=== PATIENT | female | born 1995 | race Caucasian/White ===

== ENCOUNTER 2016-10-09 02:12 | Emergency (ER) | payer OTHER ==
[~2016-10-09] VITALS: Ht 157.5 cm; Wt 66.9 kg
[~2016-10-09 02:12] MED LIST: BIOT1TAB5 PO; CITA20TA9 PO; IBUP-1428 PO; MEDR150I INJ; ONDA4TAB10 SL; OXYC1TAB3 PO; TRAM-10 PO
[2016-10-09 02:18] VITALS: TEMP 36.9; Ht 157.5 cm; Wt 66.9 kg
[2016-10-09] MEDS ORDERED: ACETAMINOPHEN 500 MG TAB PO STA (02:27)
[2016-10-09] MEDS ORDERED: IBUPROFEN 600 MG TAB PO STA (02:27)
[2016-10-09 03:55] VITALS: BP 116/67; PULSE 75; O2SAT 98
[2016-10-09] MEDS ORDERED: NORCO 5/325MG HOME PACK PO ONE (04:15)
[2016-10-09] MEDS ORDERED: MEDR150I INJ (04:24)
--- NOTE | 2016-10-09 09:00 | DIAGNOSTIC IMAGING REPORT ---
LEFT SHOULDER MIN 2 VIEWS ROUTINE CLINICAL HISTORY: Left shoulder injury COMPARISON: None FINDINGS: This exam is compromised by suboptimal positioning. Alignment of the acromioclavicular and glenohumeral joints appears anatomic and no acute fracture is identified. IMPRESSION: 1. Study compromised by difficulty with positioning. 2. No acute fracture or dislocation of the left shoulder identified. If persistent pain, repeat left shoulder radiographs could be obtained. Electronically signed by: Vel Palomares M.D. 10/09/2016 8:58 AM Dictated Date/Time: 10/09/2016 8:57 AM
--- NOTE | 2016-10-09 23:03 | EMERGENCY ROOM VISIT NOTE ---
ED Visit Note First contact with patient: 02:23 CHIEF COMPLAINT: Shoulder pain HISTORY OF PRESENT ILLNESS: This 20 year old female patient presents to the emergency department complaining of pain in the left shoulder about 30 minutes ago. The patient states that she was sitting on the ground, when she reached up to try to lift herself off the ground. She states that she had immediate pain and discomfort. There is limitation of motion of the arm because of the pain. The pain is moderate, constant and increases with motion of the hand and arm. The patient states the pain is dull and 6/10. The patient has taken nothing for relief of the pain. No previous significant previous shoulder disease or injury. No numbness or tingling. No neck and no back pain. No chest pain or shortness of breath. No abdominal pain or nausea/vomiting. No cough. REVIEW OF SYSTEMS: A 6 system review of systems was performed with positives and pertinent negatives in the HPI. ALLERGIES: Morphine, prednisone, sulfa MEDICATIONS: No chronic medications PMH: No chronic medical disease SOCIAL HISTORY: Employed and lives locally PHYSICAL EXAM: Vital Signs: Reviewed nurse's notes, vital signs stable. GENERAL : White female, in no acute distress, but appears to be in pain, well-developed , well-nourished. MUSCULOSKELETAL: There is no deformity in the contour of the left shoulder and there are no dagoberto deformities noted. There is no sulcus sign. There is tenderness over the supraspinatus distribution. The patient's range of motion is limited secondary to tenderness. Supraspinatus strength 0/ 5. There is no clavicle tenderness. No tenderness of the humerus, elbow, wrist , or hand. Spectral Scientist strength 5/5. Radial pulse 2+. NECK: No tenderness to palpation over the cervical spine. HEART: Regular rate and rhythm without murmurs gallops or rubs. LUNGS: Clear to auscultation bilaterally without wheezes, rales or rhonchi. No accessory muscle use. No retractions. NEURO: The patient is alert and oriented to person, place, and time. Normal sensation to light and sharp touch. Capillary refill less than 2 seconds. LEFT SHOULDER MIN 2 VIEWS ROUTINE CLINICAL HISTORY: Left shoulder injury COMPARISON: None FINDINGS: This exam is compromised by suboptimal positioning. Alignment of the acromioclavicular and glenohumeral joints appears anatomic and no acute fracture is identified. IMPRESSION: 1. Study compromised by difficulty with positioning. 2. No acute fracture or dislocation of the left shoulder identified. If persistent pain, repeat left shoulder radiographs could be obtained. EMERGENCY DEPARTMENT COURSE: I examined the patient. She appears to have tenderness of the left shoulder over the superior scapula. X-ray was obtained and does not show acute fracture or dislocation. The patient will be placed in an arm sling and given a short course of pain medication. She is to follow with orthopedics care management. She was otherwise invited the ER with any new , worsening, or concerning symptoms. Problem List Medical Problems: (1) Anxiety Disorder, Unspecified Status: Chronic (2) Chest wall pain Status: Resolved (3) Endometriosis Status: Chronic (4) Occipital neuralgia Status: Resolved (5) Ovarian cyst Status: Chronic Surgical Problems: (1) History of laparoscopic cholecystectomy Status: Resolved (2) S/P laparoscopic surgery Permanent Comment: for endometriosis Status: Resolved Current/Historical Medications Scheduled Biotin (Biotin), 1,000 MCG PO DAILY Citalopram Hydrobromide (Celexa), 40 MG PO DAILY Medroxyprogesterone Acetate (C (Depo-Provera Contraceptiv), 1 DOSE INJ Q 12 WEEKS Scheduled PRN Ibuprofen (Motrin), 800 MG PO Q8H PRN for Pain Tramadol (Ultram), 50 MG PO Q6 PRN for Pain Allergies Coded Allergies: Morphine (Unverified Allergy, Severe, vomiting, 10/09/16) Prednisone (Verified Allergy, Intermediate, hives, 10/09/16) Sulfa Drugs (Verified Allergy, Unknown, RASH, 10/09/16) Vital Signs Date Time Temp Pulse Resp B/P Pulse Ox O2 Delivery O2 Flow Rate FiO2 10/09/16 03:55 75 16 116/67 98 Room Air 10/09/16 02:18 36.9 83 18 127/85 98 Room Air Medications Administered Medications (Trade) Dose Ordered Sig/Praveen Route Start Time Stop Time Status Last Admin Dose Admin Acetaminophen (Tylenol Tab) 1,000 mg NOW STAT PO 10/09/16 02:27 10/09/16 02:28 DC 10/09/16 02:27 1,000 MG Acetaminophen/ Hydrocodone Bitart ([place] 5/325mg Home Pack) 1 homepack UD ONCE PO 10/09/16 04:15 2/12/17 04:16 DC 10/09/16 04:15 1 HOMEPACK Departure Information Impression Primary Impression: Injury of left shoulder Dispostion Home / Self-Care Condition GOOD Forms HOME CARE DOCUMENTATION FORM, Work Instructions, Additional Instructions: Patient was seen and evaluated today in the emergency department fo medical care. May not return to work until cleared by orthopedics. IMPORTANT VISIT INFORMATION Patient Instructions My [facility] Additional Instructions You were seen and evaluated today on an emergency basis only. This is not a substitute for, or an effort to provide, complete comprehensive medical care. It is not possible to recognize and treat all injuries or illnesses in a single emergency department visit. 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 For baseline pain relief you may alternate ibuprofen and acetaminophen every 4 hours for pain control. Take 600 mg ibuprofen (Advil) and then 4 hours later take 1000 mg acetaminophen (Tylenol). Do not take more than 3000 mg acetaminophen in a single day. [place] (hydrocodone/acetaminophen) 5/325 mg (homepack) every 6 hours as needed for worsening breakthrough pain. Do not drink or drive on [place]. This medication will likely make you tired. Do not take [place] and Tylenol at the same time as both contain acetaminophen. [place] may cause constipation. You may wish to take an [id number] stool softener like Colace if this occurs. You are welcome to return to the emergency department anytime with new, worsening, or concerning symptoms. Work Instructions Additional Work Instructions: Patient was seen and evaluated today in the emergency department for medical care. May not return to work until cleared by orthopedics.
== END 2016-10-09 04:18 | disposition home or self-care (01) ==
LOC: C.EDB 02:13
DX: S49.92XA Unspecified injury of left shoulder and upper arm, initial encounter (principal); X50.9XXA Other and unspecified overexertion or strenuous movements or postures, initial encounter; Y99.0 Civilian activity done for income or pay; F41.9 Anxiety disorder, unspecified

== ENCOUNTER 2016-10-29 18:32 | Emergency (ER) | payer OTHER ==
[~2016-10-29] VITALS: Ht 160 cm; Wt 69.4 kg
[~2016-10-29 18:32] MED LIST changes: -ONDA4TAB10 SL; -OXYC1TAB3 PO
[2016-10-29 18:38] VITALS: TEMP 36.7; Ht 160 cm; Wt 69.4 kg
--- NOTE | 2016-10-29 19:20 | DIAGNOSTIC IMAGING REPORT ---
SINGLE VIEW CHEST CLINICAL HISTORY: Dyspnea. Atypical chest pain. Chest congestion. FINDINGS: An AP, portable, upright chest radiograph is compared to study dated 05/08/2016. The cardiomediastinal silhouette is unremarkable. The lungs and pleural spaces are clear. No pneumothorax is seen. The bony thorax is grossly intact. IMPRESSION: No active disease in the chest. Electronically signed by: Wood Briggs M.D. 10/29/2016 7:18 PM Dictated Date/Time: 10/29/2016 7:18 PM
[2016-10-29] MEDS ORDERED: MELO7.5T5 PO (19:23)
[2016-10-29] MEDS ORDERED: MULT-1027 PO (19:24)
[2016-10-29 19:29] LABS: BASO % 0.2 %; BASO ABS # 0.02 K/uL (0-0.2); COMPLETE YES; EOS % 0.4 %; HEMATOCRIT 40.8 % (37-47); IG% 0.2 %; LYMPH % 34.1 %; LYMPH ABS # 3.42 K/uL (1.2-3.4); MEAN CELL VOLUME 88.7 fL (80-100); MEAN CORPUSCULAR HEMOGLOBIN 31.3 pg (25-34); MEAN CORPUSCULAR HGB CONC 35.3 g/dl (32-36); MEAN PLATELET VOLUME 10.3 fL (7.4-10.4); MONO % 8.4 %; NEUT % 56.7 %; PLATELET COUNT 271 K/uL (130-400); WHITE BLOOD COUNT 10.03 K/uL (4.8-10.8)
[2016-10-29 19:47] LABS: ALT/SGPT 28 U/L (12-78); BLOOD UREA NITROGEN 12 mg/dl (7-18); BUN/CREATININE RATIO 14.4 (10-20); CALCIUM 9.2 mg/dl (8.5-10.1); CARBON DIOXIDE 23 mmol/L (21-32); CHLORIDE 109 mmol/L (98-107); CREATININE 0.85 mg/dl (0.60-1.20); GLUCOSE 82 mg/dl (70-99); POTASSIUM 3.7 mmol/L (3.5-5.1); SODIUM 142 mmol/L (136-145)
[2016-10-29 19:58] LABS: ALKALINE PHOSPHATASE 72 U/L (45-117); AST/SGOT 19 U/L (15-37)
[2016-10-29 22:04] VITALS: BP 115/73; PULSE 72; O2SAT 99
--- NOTE | 2016-10-29 22:09 | EMERGENCY ROOM VISIT NOTE ---
History Report prepared by Stella: Winsome Bush Under the Supervision of: Dr. Nguyễn Gautam D.O. First contact with patient: 18:43 Chief Complaint: RESPIRATORY PROBLEMS Stated Complaint: CHEST PAIN,SOB,FLUID BUILD UP History of Present Illness The patient is a 20 year old female who presents to the Emergency Room with complaints of constant shortness of breath beginning 5:30pm. The patient states that she feels like she cannot take a deep breath. She notes that she has a history of anxiety and is on Celexa but this does not feel like her usual anxiety. She complains of chest pain that she describes as sharp and throbbing beginning 1 week ago, sleeping for 12+ hours a day, hot and cold flashes, finger swelling, and heart palpitations. The patient denies any arm pain, jaw pain, cough, calf swelling, recent trips, coughing up blood, previous blood clots, fever, drug use, no history of sudden below 30 years old in her family. She also denies any history of diabetes, hypertension, hyperlipidemia and current smoking. She notes that when she has an episode her fingers tingle and she gets these episodes of chest pain and finger tingling for about 10 minutes a few times a day. She states that activity worsens her symptoms and resting improves them. The patient states that she has lost about 20 pounds in the last month. Source of History: patient Onset: 1 hour ago Position: other (global) Quality: other (SOB) Timing: constant Modifying Factors (Worsening): exertion Modifying Factors (Relieving): rest Associated Symptoms: + chest pain, No fevers Note: She complains of chest pain that she describes as sharp and throbbing beginning 1 week ago, sleeping for 12+ hours a day, hot and cold flashes, finger swelling , and heart palpitations. The patient denies any arm pain, jaw pain, cough, calf swelling, recent trips, coughing up blood, previous blood clots, drug use, no history of sudden below 30 years old in her family. Review of Systems See HPI for pertinent positives & negatives. A total of 10 systems reviewed and were otherwise negative. Past Medical & Surgical Medical Problems: (1) Anxiety Disorder, Unspecified (2) Chest wall pain (3) Endometriosis (4) Occipital neuralgia (5) Ovarian cyst Surgical Problems: (1) History of laparoscopic cholecystectomy (2) S/P laparoscopic surgery Family History No pertinent family history Social History Smoking Status: Former Smoker Drug Use: none Occupation Status: student Current/Historical Medications Scheduled Biotin (Biotin), 10 MG PO DAILY Citalopram Hydrobromide (Celexa), 40 MG PO DAILY Medroxyprogesterone Acetate (C (Depo-Provera Contraceptiv), 1 DOSE INJ Q 12 WEEKS Meloxicam (Mobic), Unknown Dose PO DAILY Multiple Vitamin (Multi Vitamin), 1 TAB PO DAILY Scheduled PRN Ibuprofen (Motrin), 800 MG PO Q8H PRN for Pain Allergies Coded Allergies: Morphine (Unverified Allergy, Severe, vomiting, 10/29/16) Prednisone (Verified Allergy, Intermediate, hives, 10/29/16) Sulfa Drugs (Verified Allergy, Unknown, RASH, 10/29/16) Physical Exam Vital Signs Date Time Temp Pulse Resp B/P Pulse Ox O2 Delivery O2 Flow Rate FiO2 10/29/16 22:04 72 16 115/73 99 10/29/16 18:38 36.7 79 18 119/75 100 Room Air Physical Exam GENERAL: sitting up in bed, anxious, no distress, non-toxic EYE EXAM: normal conjunctiva OROPHARYNX: no exudate, no erythema, lips, buccal mucosa, and tongue normal and mucous membranes are moist NECK: supple, no nuchal rigidity, no adenopathy, non-tender LUNGS: Clear to auscultation. Normal chest wall mechanics HEART: no murmurs, S1 normal and S2 normal CHEST: Anterior sternal reproducible tenderness. ABDOMEN: abdomen soft, non-tender, normo-active bowel sounds, no masses, no rebound or guarding. BACK: Back is symmetrical on inspection and there is no deformity, no midline tenderness, no CVA tenderness. SKIN: no rashes and no bruising UPPER EXTREMITIES: upper extremities are grossly normal. LOWER EXTREMITIES: No pitting edema. Calves are equal bilaterally. Pulses equal bilaterally. NEURO EXAM: Normal sensorium, cranial nerves II-XII grossly intact, normal speech, no gross weakness of arms, no gross weakness of legs. Medical Decision & Procedures ER Provider Diagnostic Interpretation: Xray results per the radiologist and my interpretation. SINGLE VIEW CHEST FINDINGS: An AP, portable, upright chest radiograph is compared to study dated 05/08/2016. The cardiomediastinal silhouette is unremarkable. The lungs and pleural spaces are clear. No pneumothorax is seen. The bony thorax is grossly intact. IMPRESSION: No active disease in the chest. Electronically signed by: Wood Briggs M.D. 10/29/2016 7:18 PM Dictated Date/Time: 10/29/2016 7:18 PM Laboratory Results 10/29/16 19:20 Red Blood Count 4.60, Mean Corpuscular Volume 88.7, Mean Corpuscular Hemoglobin 31.3, Mean Corpuscular Hemoglobin Concent 35.3, Mean Platelet Volume 10.3, Neutrophils (%) (Auto) 56.7, Lymphocytes (%) (Auto) 34.1, Monocytes (%) (Auto) 8.4, Eosinophils (%) (Auto) 0.4, Basophils (%) (Auto) 0.2, Neutrophils # (Auto) 5.69, Lymphocytes # (Auto) 3.42, Monocytes # (Auto) 0.84, Eosinophils # (Auto) 0.04, Basophils # (Auto) 0.02 10/29/16 19:20 Test 10/29/16 19:20 White Blood Count 10.03 K/uL (4.8-10.8) Red Blood Count 4.60 M/uL (4.2-5.4) Hemoglobin 14.4 g/dL (12.0-16.0) Hematocrit 40.8 % (37-47) Mean Corpuscular Volume 88.7 fL (80-100) Mean Corpuscular Hemoglobin 31.3 pg (25-34) Mean Corpuscular Hemoglobin Concent 35.3 g/dl (32-36) Platelet Count 271 K/uL (130-400) Mean Platelet Volume 10.3 fL (7.4-10.4) Neutrophils (%) (Auto) 56.7 % Lymphocytes (%) (Auto) 34.1 % Monocytes (%) (Auto) 8.4 % Eosinophils (%) (Auto) 0.4 % Basophils (%) (Auto) 0.2 % Neutrophils # (Auto) 5.69 K/uL (1.4-6.5) Lymphocytes # (Auto) 3.42 K/uL (1.2-3.4) Monocytes # (Auto) 0.84 K/uL (0.11-0.59) Eosinophils # (Auto) 0.04 K/uL (0-0.5) Basophils # (Auto) 0.02 K/uL (0-0.2) RDW Standard Deviation 39.0 fL (36.4-46.3) RDW Coefficient of Variation 12.2 % (11.5-14.5) Immature Granulocyte % (Auto) 0.2 % Immature Granulocyte # (Auto) 0.02 K/uL (0.00-0.02) D-Dimer < 190 ug/L FEU (0-500) Anion Gap 10.0 mmol/L (3-11) Est Creatinine Clear Calc Drug Dose 98.6 ml/min Estimated GFR () 114.3 Estimated GFR (Non- 98.6 BUN/Creatinine Ratio 14.4 (10-20) Calcium Level 9.2 mg/dl (8.5-10.1) Total Bilirubin 0.4 mg/dl (0.2-1) Direct Bilirubin 0.1 mg/dl (0-0.2) Aspartate Amino Transf (AST/SGOT) 19 U/L (15-37) Alanine Aminotransferase (ALT/SGPT) 28 U/L (12-78) Alkaline Phosphatase 72 U/L (45-117) Troponin I < 0.015 ng/ml (0-0.045) Pro-B-Type Natriuretic Peptide 44 pg/ml (0-450) Total Protein 7.1 gm/dl (6.4-8.2) Albumin 4.1 gm/dl (3.4-5.0) Thyroid Stimulating Hormone (TSH) 1.460 uIu/ml (0.300-4.500) ECG Indication: chest pain Rate (beats per minute): 76 Rhythm: sinus rhythm Findings: no ectopy, other (normal axis) ED Course ED COURSE: Vital signs were reviewed and normal The patients medical record was reviewed The above diagnostic studies were performed and reviewed. ED treatments and interventions as stated above. 1855: The patient was evaluated in room C7. A complete history and physical examination was performed. The patient was 66 kilos on 10/09 and is now 69 kilos. 2147: I reevaluated the patient. She is doing well. 2200: Upon reevaluation, the patient is hemodynamically stable.I discussed my findings with the patient and she understands and agrees with the treatment plan. Based on the patients age, coexisting illnesses, exam and lab findings the decision to treat as an outpatient was made. The patient remained stable while under my care. The patient appeared well at the time of discharge. Medical Decision Differential diagnoses includes but is not limited to pneumonia, bronchitis, COPD/Asthma exacerbation, pneumothorax, pulmonary embolism, congestive heart failure, acute coronary syndrome Patient is a 20-year-old female who presents the ER for chest pain which has been present intermittently for the past week. She also complains of shortness of breath which started around 5:30 PM tonight. Along with this she did feel her heart racing and felt paresthesias in her fingertips bilaterally. She denies any cardiac risk factors as well as PE risk factors. Her d-dimer was negative. Troponins were negative 2. Chest x-ray was unremarkable. EKG was completely benign. Patient's symptoms were improved significantly while resting in the ER. Patient was discharged follow-up with her primary care doctor. Discussed with Pt concerning signs and symptoms to watch out for. Pt was instructed to follow up with their PCP and discussed with the patient their option to return to the ED at anytime for persistent or worsening symptoms. The appropriate anticipatory guidance and out-patient management, including indications for return to the emergency department, were explained at length to the patient and understood. Impression Primary Impression: SOB (shortness of breath) Additional Impression: Precordial chest pain Scribe Attestation The scribe's documentation has been prepared under my direction and personally reviewed by me in its entirety. I confirm that the note above accurately reflects all work, treatment, procedures, and medical decision making performed by me. Departure Information Dispostion Home / Self-Care Referrals Jennifer Murray M.D. (PCP) Forms HOME CARE DOCUMENTATION FORM, IMPORTANT VISIT INFORMATION, WORK / SCHOOL INSTRUCTIONS Patient Instructions Chest Pain - [facility], ED Dyspnea Shortness of Breath, My [facility] Additional Instructions Please follow up with your primary care doctor with in the next 24 hours. Any worsening of your symptoms, please return to the ED immediately. This includes worsening chest pain, shortness breath, passing out, or any other concerning signs or symptoms from your standpoint. Again you must follow up with your primary care doctor on Monday morning. Problem Qualifiers
== END 2016-10-29 22:05 | disposition home or self-care (01) ==
LOC: C.EDB 18:33 → C.EDC 22:05
DX: R06.02 Shortness of breath (principal); R07.2 Precordial pain; F41.9 Anxiety disorder, unspecified; Z90.49 Acquired absence of other specified parts of digestive tract; Z87.891 Personal history of nicotine dependence

== ENCOUNTER 2017-06-05 17:54 | Emergency (ER) | payer OTHER ==
[~2017-06-05] VITALS: Ht 157.5 cm; Wt 69.3 kg
[~2017-06-05 17:54] MED LIST changes: -IBUP-1428 PO; +MELO7.5T5 PO; -TRAM-10 PO
[2017-06-05 18:00] VITALS: TEMP 37.1; Ht 157.5 cm; Wt 69.3 kg
[2017-06-05] MEDS ORDERED: ACETAMINOPHEN SUSP 160 MG/5 ML UDC ONE (19:21)
[2017-06-05] MEDS ORDERED: MULT-1027 PO (19:24)
--- NOTE | 2017-06-05 19:26 | EMERGENCY ROOM VISIT NOTE ---
History Report prepared by Stella: Edenilson Mathias Under the Supervision of: Dr. Elías Garcia M.D. First contact with patient: 18:55 Chief Complaint: ABDOMINAL PAIN Stated Complaint: R SIDE PAIN,NAUSEA,CONSTIPATION Nursing Triage Summary: pt ambulated to triage reports started with RLQ pain that radiates across abdomen since sat. became worse about 1 hour ago, reports nausea taking home zofran last dose 1200 nood History of Present Illness The patient is a 21 year old female who presents to the Emergency Room with complaints of generalized abdominal pain that began yesterday. Today, it localized to her RLQ. She rates her pain a 5/10 in severity. Her pain worsens with movement. She is also experiencing chills, nausea, vomiting, and constipation. She denies any diarrhea, back pain, fevers over 100 F. She has a past medical history of a cholecystectomy, migraines, and endometriosis. She denies any burning with urination as well. She is on the Depo shot and states that she does not get any spotting or cramping. She has been taking Zofran to try to relieve her nausea. Source of History: patient Onset: yesterday Position: abdomen (RLQ) Symptom Intensity: 5/10 Quality: sharp Timing: constant Modifying Factors (Worsening): movement Associated Symptoms: + chills, + nausea, + vomiting, No fevers, No back pain , No urinary symptoms Review of Systems See HPI for pertinent positives and negatives. A total of ten systems were reviewed and were otherwise negative. Past Medical & Surgical Medical Problems: (1) Anxiety Disorder, Unspecified (2) Chest wall pain (3) Endometriosis (4) Occipital neuralgia (5) Ovarian cyst Surgical Problems: (1) History of laparoscopic cholecystectomy (2) S/P laparoscopic surgery Family History No pertinent family history Social History Smoking Status: Former Smoker Drug Use: none Marital Status: in relationship Occupation Status: student Current/Historical Medications Scheduled Medroxyprogesterone Acetate (C (Depo-Provera Contraceptiv), 1 DOSE INJ Q 12 WEEKS Multiple Vitamin (Multi Vitamin), 1 TAB PO DAILY Phentermine Hcl (Adipex P), 37.5 MG PO DAILY Thiamine Mononitrate (Vitamin B-1), 400 MG PO DAILY Scheduled PRN Ibuprofen (Motrin), 800 MG PO Q8H PRN for Pain Ondansetron Hcl (Zofran), 4 MG PO UD PRN for Nausea Allergies Coded Allergies: Prednisone (Verified Allergy, Intermediate, hives, 10/29/16) Sulfa Drugs (Verified Allergy, Unknown, RASH, 10/29/16) Morphine (Unverified Adverse Reaction, Severe, vomiting, 06/05/17) Physical Exam Vital Signs Date Time Temp Pulse Resp B/P (MAP) Pulse Ox O2 Delivery O2 Flow Rate FiO2 06/06/17 02:36 105 13 98 06/06/17 02:33 146/85 06/06/17 02:21 104 14 97 06/06/17 02:06 110 15 98 06/06/17 02:01 121/79 06/06/17 01:51 107 21 98 06/06/17 01:36 117 97 06/06/17 01:31 96 12 125/78 06/06/17 01:16 100 13 97 06/06/17 01:01 93 13 118/76 97 06/06/17 00:46 103 13 98 06/06/17 00:41 109 22 98 06/06/17 00:31 128/88 06/06/17 00:26 109 13 100 06/06/17 00:11 102 99 06/06/17 00:01 116/81 06/05/17 23:56 101 16 95 06/05/17 23:41 99 14 97 06/05/17 23:38 136/83 06/05/17 23:06 113 14 97 06/05/17 23:01 127/80 06/05/17 22:51 100 12 97 06/05/17 22:36 112 13 98 06/05/17 22:31 135/85 06/05/17 22:21 111 13 97 06/05/17 22:06 107 13 97 06/05/17 22:01 129/77 06/05/17 21:51 112 14 97 06/05/17 21:36 101 12 97 06/05/17 21:31 136/82 06/05/17 21:21 99 12 99 06/05/17 21:14 125/78 06/05/17 20:36 103 15 99 06/05/17 20:31 136/74 06/05/17 20:30 103 16 100 06/05/17 20:15 89 17 100 06/05/17 20:01 134/74 06/05/17 20:00 89 99 06/05/17 19:45 88 100 06/05/17 19:31 139/86 06/05/17 19:30 96 98 06/05/17 19:15 99 15 99 Room Air 06/05/17 19:13 141/81 06/05/17 18:00 37.1 120 20 134/90 98 Room Air Physical Exam GENERAL: Awake, alert, uncomfortable appearing, in no distress HENT: Normocephalic, atraumatic. Oropharynx unremarkable. EYES: Normal conjunctiva. Sclera non-icteric. NECK: Supple. No nuchal rigidity. FROM. No JVD. RESPIRATORY: Clear to auscultation. CARDIAC: Regular rate, normal rhythm. Extremities warm and well perfused. Pulses equal. ABDOMEN: Soft, non-distended. Positive McBurney's sign. Positive psoas sign. Positive Rovsing's sign. Negative Oconnell's sign. Rebound tenderness. No masses. RECTAL: Deferred. : Normal external genitalia, No discharge. No CMT. MUSCULOSKELETAL: Chest examination reveals no tenderness. The back is symmetrical on inspection without obvious abnormality. There is no CVA tenderness to palpation. No joint edema. LOWER EXTREMITIES: Calves are equal size bilaterally and non-tender. No edema. No discoloration. NEURO: Normal sensorium. No sensory or motor deficits noted. SKIN: No rash or jaundice noted. Medical Decision & Procedures ER Provider Diagnostic Interpretation: Radiology results as stated below per my review and radiologist interpretation: ABDOMEN AND PELVIS CT WITH IV CONTRAST CT DOSE: 270.76 mGy.cm HISTORY: RLQ pain - r/o appendicitis TECHNIQUE: Multiaxial CT images of the abdomen and pelvis were performed following the use of intravenous contrast. A dose lowering technique was utilized adhering to the principles of ALARA. COMPARISON STUDY: Abdomen and pelvis CT 07/31/2016. FINDINGS: The appendix is not well visualized due to the lack of oral contrast and the adjacent loops of small bowel. However, the appendix appears to be identified within the right lower quadrant on images 254 through 262 adjacent to the iliac vessels. This is normal in caliber measuring less than 6 mm. There is no inflammatory change at this location to suggest acute appendicitis. The bladder, uterus, bilateral adnexa are unremarkable. No bowel wall thickening or obstruction. The lung bases are clear. No pneumoperitoneum. No pneumatosis. No fractures within the visualized osseous structures. Cholecystectomy. The liver, spleen, adrenal glands, and pancreas are unremarkable. The kidneys enhance normally. No hydronephrosis. No retroperitoneal lymphadenopathy. No definite bowel wall thickening or obstruction. IMPRESSION: 1. The appendix is suboptimally evaluated but appears to be within normal limits. However, if the patient's symptoms continue to progress consider repeat abdomen and pelvis CT with oral and intravenous contrast. 2. No definite bowel wall thickening or obstruction. 3. Cholecystectomy. Electronically signed by: Gordo Infante M.D. 06/05/2017 9:08 PM Dictated Date/Time: 06/05/2017 8:58 PM STATRad - Preliminary Findings Only See Final Report For Complete Findings US PELVIS: No acute abnormality identified. Uterus measures 7.8 x 3.1 x 4.8 cm. Endometrium measures 2.9 mm. No focal myometrial lesion identified. Normal sonographic appearance of the ovaries with normal color Doppler flow. Probable dominant follicle in the right ovary. No free fluid or adnexal mass. Patient refused transvaginal images. Radiologist: Zuleima Rhodes M.D. Laboratory Results 06/05/17 20:01 Red Blood Count 4.93, Mean Corpuscular Volume 88.2, Mean Corpuscular Hemoglobin 30.8, Mean Corpuscular Hemoglobin Concent 34.9, Mean Platelet Volume 10.5, Neutrophils (%) (Auto) 58.1, Lymphocytes (%) (Auto) 32.3, Monocytes (%) (Auto) 8.5, Eosinophils (%) (Auto) 0.4, Basophils (%) (Auto) 0.4, Neutrophils # (Auto) 5.76, Lymphocytes # (Auto) 3.20, Monocytes # (Auto) 0.84, Eosinophils # (Auto) 0.04, Basophils # (Auto) 0.04 06/05/17 20:01 Test 06/05/17 20:01 06/05/17 20:51 06/06/17 00:20 White Blood Count 9.91 K/uL (4.8-10.8) Red Blood Count 4.93 M/uL (4.2-5.4) Hemoglobin 15.2 g/dL (12.0-16.0) Hematocrit 43.5 % (37-47) Mean Corpuscular Volume 88.2 fL (80-100) Mean Corpuscular Hemoglobin 30.8 pg (25-34) Mean Corpuscular Hemoglobin Concent 34.9 g/dl (32-36) Platelet Count 284 K/uL (130-400) Mean Platelet Volume 10.5 fL (7.4-10.4) Neutrophils (%) (Auto) 58.1 % Lymphocytes (%) (Auto) 32.3 % Monocytes (%) (Auto) 8.5 % Eosinophils (%) (Auto) 0.4 % Basophils (%) (Auto) 0.4 % Neutrophils # (Auto) 5.76 K/uL (1.4-6.5) Lymphocytes # (Auto) 3.20 K/uL (1.2-3.4) Monocytes # (Auto) 0.84 K/uL (0.11-0.59) Eosinophils # (Auto) 0.04 K/uL (0-0.5) Basophils # (Auto) 0.04 K/uL (0-0.2) RDW Standard Deviation 38.3 fL (36.4-46.3) RDW Coefficient of Variation 12.0 % (11.5-14.5) Immature Granulocyte % (Auto) 0.3 % Immature Granulocyte # (Auto) 0.03 K/uL (0.00-0.02) Urine Color DK YELLOW Urine Appearance CLOUDY (CLEAR) Urine pH 5.0 (4.5-7.5) Urine Specific [place] 1.032 (1.000-1.030) Urine Protein NEG (NEG) Urine Glucose (UA) NEG (NEG) Urine Ketones TRACE (NEG) Urine Occult Blood NEG (NEG) Urine Nitrite NEG (NEG) Urine Bilirubin NEG (NEG) Urine Urobilinogen NEG (NEG) Urine Leukocyte Esterase NEG (NEG) Urine WBC (Auto) 10-30 /hpf (0-5) Urine RBC (Auto) 0-4 /hpf (0-4) Urine Hyaline Casts (Auto) 10-30 /lpf (0-5) Urine Epithelial Cells (Auto) >30 /lpf (0-5) Urine Bacteria (Auto) NEG (NEG) Urine Renal Epithelial Cells /lpf (0-5) Urine Crystals CALCIUM OXALATE (NONE Anion Gap 6.0 mmol/L (3-11) Est Creatinine Clear Calc Drug Dose 82.0 ml/min Estimated GFR () 94.4 Estimated GFR (Non- 81.5 BUN/Creatinine Ratio 9.2 (10-20) Calcium Level 9.6 mg/dl (8.5-10.1) Total Bilirubin 0.3 mg/dl (0.2-1) Direct Bilirubin < 0.1 mg/dl (0-0.2) Aspartate Amino Transf (AST/SGOT) 15 U/L (15-37) Alanine Aminotransferase (ALT/SGPT) 20 U/L (12-78) Alkaline Phosphatase 83 U/L (45-117) Total Protein 7.1 gm/dl (6.4-8.2) Albumin 4.1 gm/dl (3.4-5.0) Lipase 136 U/L (73-393) Urine Test NEG (NEG) Laboratory results reviewed by me Medications Administered Medications (Trade) Dose Ordered Sig/Praveen Route Start Time Stop Time Status Last Admin Dose Admin Sodium Chloride 1,000 ml @ 999 mls/hr Q1H1M STAT IV 06/05/17 19:29 06/05/17 20:29 DC 06/05/17 19:57 999 MLS/HR Ondansetron HCl (Zofran Inj) 4 mg NOW STAT IV 06/05/17 19:29 06/05/17 19:33 DC 06/05/17 20:00 4 MG Morphine Sulfate (MoRPHine SULFATE INJ) 4 mg NOW STAT IV 06/05/17 19:29 06/05/17 19:33 DC 06/05/17 20:02 4 MG Hydromorphone HCl (Dilaudid Inj) 0.5 mg NOW STAT IV 06/05/17 21:01 06/05/17 21:03 DC 06/05/17 21:18 0.5 MG Ondansetron HCl (Zofran Inj) 4 mg NOW STAT IV 06/05/17 21:57 06/05/17 21:58 DC 06/05/17 22:04 4 MG Ketorolac Tromethamine (Toradol Inj) 30 mg NOW STAT IV 06/05/17 23:40 06/05/17 23:41 DC 06/05/17 23:51 30 MG Sodium Chloride 1,000 ml @ 999 mls/hr Q1H1M STAT IV 06/05/17 23:41 06/06/17 00:41 DC 06/05/17 23:49 999 MLS/HR Sodium Chloride 1,000 ml @ 999 mls/hr Q1H1M STAT IV 06/06/17 01:00 06/06/17 02:00 DC 06/06/17 01:26 999 MLS/HR Metoclopramide HCl (Reglan Inj) 10 mg NOW STAT IV 06/06/17 01:00 06/06/17 01:08 DC 06/06/17 01:27 10 MG Hydromorphone HCl (Dilaudid Inj) 0.5 mg NOW STAT IV 06/06/17 01:00 06/06/17 01:08 DC 06/06/17 01:30 0.5 MG Ondansetron HCl (Zofran 8mg Iv) 8 mg NOW ONCE IV 06/06/17 02:45 06/06/17 02:46 DC 06/06/17 02:45 8 MG ED Course 1855: The patient was evaluated in room A9B. A complete history and physical exam was performed. 192: Ordered Morphine Sulfate 4 mg IV, Zofran Inj 4 mg IV, Sodium Chloride 1000 ml @ 999 mls/hr IV 2100: Ordered Zofran Inj 4 mg IV, Dilaudid Inj 0.5 mg IV 2140: Ordered Toradol Inj 30 mg IV 2156: Ordered Zofran Inj 4 mg IV Medical Decision I reviewed the patient's past medical history, medications, and the nursing notes as described above. Differential diagnosis includes but is not limited to: appendicitis, ruptured cyst, ectopic , endometriosis, colitis, gastroenteritis, UTI, and pyelonephritis. The patient is a 21-year-old woman with a past medical history of a cholecystectomy, variant cysts who presents to emergency department with worsening abdominal pain that was initially generalized and then more in the right lower quadrant with associated nausea and vomiting and decreased appetite. History of present illness. Arrival the patient appears uncomfortable but in no acute distress, afebrile with stable vital signs. On exam the patient did exhibit a positive Rovsing's and psoas sign. As well as point tenderness over McBurney's point. Exam findings were consistent with appendicitis and thus a CT was ordered. However, CT was negative appendicitis although did comment on limitations of appendix not being fully appreciated recommending repeat with oral contrast as well if clinical picture fits. Of note, patient reports having a history of a labile HR particulary in the setting of anxiety/pain. On arrival HR 100s-110s but improved to 90s with IVF however still periodically labile with pain,movement. CBC within normal limits. Labs otherwise unremarkable. UA dirty and patient denies urinary sx. Will wait for cultures. Subsequently the patient had a pelvic ultrasound that showed only a right ovarian follicle but limited due to only a transabdominal view. Pelvic exam was unremarkable without any discharge, no CMT. Culture sent and pending. Given no concerning findings no need for empiric treatment at this time. Patient was reevaluated and was feeling some improvement and therefore PO trial was attempted to see if the patient could be discharged. After drinking small amounts of juice the patient immediately became nauseated and had a return of her pain. A CT was reordered this time with IV and oral contrast. If CT is negative then symptoms are most likely 2/2 gastroenteritis and so discharge with antiemetics and PCP follow-up would be appropriate. Otherwise, dispo per CT findings. Patient signed out to Dr. Mendez. Medication Reconcilliation Current Medication List: was personally reviewed by me Blood Pressure Screening Patient's blood pressure: Normal blood pressure Blood pressure disposition: Did not require urgent referral Impression Primary Impression: Right lower quadrant abdominal pain Scribe Attestation The scribe's documentation has been prepared under my direction and personally reviewed by me in its entirety. I confirm that the note above accurately reflects all work, treatment, procedures, and medical decision making performed by me. Departure Information Patient Instructions Abdominal Pain, My [facility] Additional Instructions Please follow up with your primary care physician in the next 1-3 days for re- evaluation. The CT scan of her abdomen did not show any evidence of appendicitis however was limited repeat with oral contrast was recommended if symptoms persist. However, your symptoms did improve and so appendicitis is not likely at this time. The cause of your symptoms at this time is unclear at this time. Otherwise, your exam, lab results, CT scan, and pelvic US did not show signs of an emergent condition at this time. Return to the emergency department for worsening symptoms as described in the accompanying instructions.
[2017-06-05] MEDS ORDERED: ONDANSETRON INJ 2 MG/ML 2 ML VIAL IV STA ×3 (19:29→21:57)
[2017-06-05] MEDS ORDERED: MoRPHine SULFATE 4 MG/ML 1 ML CARP\\VIAL IV STA (19:29)
[2017-06-05] MEDS ORDERED: SODIUM CHLORIDE 0.9% 1000ML 1,000 ML IV STA ×2 (19:29→23:41)
[2017-06-05] MEDS ORDERED: THIA1TAB PO (19:39)
[2017-06-05] MEDS ORDERED: ONDA4TAB46 PO (19:39)
[2017-06-05] MEDS ORDERED: PHEN37.585 PO (19:39)
[2017-06-05] MEDS ORDERED: OPTIRAY 320 IV PRN (19:45)
[2017-06-05 20:09] LABS: BASO % 0.4 %; BASO ABS # 0.04 K/uL (0-0.2); COMPLETE YES; EOS % 0.4 %; HEMATOCRIT 43.5 % (37-47); IG% 0.3 %; LYMPH % 32.3 %; MEAN CELL VOLUME 88.2 fL (80-100); MEAN CORPUSCULAR HEMOGLOBIN 30.8 pg (25-34); MEAN CORPUSCULAR HGB CONC 34.9 g/dl (32-36); MEAN PLATELET VOLUME 10.5 fL (7.4-10.4); MONO % 8.5 %; NEUT % 58.1 %; PLATELET COUNT 284 K/uL (130-400); RED BLOOD COUNT 4.93 M/uL (4.2-5.4); WHITE BLOOD COUNT 9.91 K/uL (4.8-10.8)
[2017-06-05 20:15] LABS: URINE APPEARANCE CLOUDY (CLEAR); URINE BILIRUBIN NEG (NEG); URINE COLOR DK YELLOW; URINE EPITHELIAL CELL AUTO >30 /lpf (0-5); URINE NITRITE NEG (NEG); URINE SPECIFIC GRAVITY 1.032 (1.000-1.030); UROBILINOGEN NEG (NEG); ZZUR CULT IF INDIC CLEAN CATCH YES
[2017-06-05 20:22] LABS: MANUAL MICROSCOPIC REQUIRED? NO; REVIEW REQ? YES
[2017-06-05 20:34] LABS: BLOOD UREA NITROGEN 9 mg/dl (7-18); BUN/CREATININE RATIO 9.2 (10-20); CALCIUM 9.6 mg/dl (8.5-10.1); CARBON DIOXIDE 25 mmol/L (21-32); CHLORIDE 109 mmol/L (98-107); CREATININE 0.99 mg/dl (0.60-1.20); GLUCOSE 81 mg/dl (70-99); POTASSIUM 3.5 mmol/L (3.5-5.1); SODIUM 140 mmol/L (136-145)
[2017-06-05 20:37] LABS: ALKALINE PHOSPHATASE 83 U/L (45-117); ALT/SGPT 20 U/L (12-78); AST/SGOT 15 U/L (15-37)
[2017-06-05] MEDS ORDERED: HYDROmorphone INJ 0.5 MG/0.5 ML SYR IV STA (21:01)
--- NOTE | 2017-06-05 21:09 | DIAGNOSTIC IMAGING REPORT ---
ABDOMEN AND PELVIS CT WITH IV CONTRAST CT DOSE: 270.76 mGy.cm HISTORY: RLQ pain - r/o appendicitis TECHNIQUE: Multiaxial CT images of the abdomen and pelvis were performed following the use of intravenous contrast. A dose lowering technique was utilized adhering to the principles of ALARA. COMPARISON STUDY: Abdomen and pelvis CT 07/31/2016. FINDINGS: The appendix is not well visualized due to the lack of oral contrast and the adjacent loops of small bowel. However, the appendix appears to be identified within the right lower quadrant on images 254 through 262 adjacent to the iliac vessels. This is normal in caliber measuring less than 6 mm. There is no inflammatory change at this location to suggest acute appendicitis. The bladder, uterus, bilateral adnexa are unremarkable. No bowel wall thickening or obstruction. The lung bases are clear. No pneumoperitoneum. No pneumatosis. No fractures within the visualized osseous structures. Cholecystectomy. The liver, spleen, adrenal glands, and pancreas are unremarkable. The kidneys enhance normally. No hydronephrosis. No retroperitoneal lymphadenopathy. No definite bowel wall thickening or obstruction. IMPRESSION: 1. The appendix is suboptimally evaluated but appears to be within normal limits. However, if the patient's symptoms continue to progress consider repeat abdomen and pelvis CT with oral and intravenous contrast. 2. No definite bowel wall thickening or obstruction. 3. Cholecystectomy. Electronically signed by: Gordo Infante M.D. 06/05/2017 9:08 PM Dictated Date/Time: 06/05/2017 8:58 PM
[2017-06-05 21:32] LABS: PREG INTERNAL NEGATIVE QC NEG CLEAR BACKGROUND; PREG INTERNAL POSITIVE QC POS CONTROL LINE
[2017-06-05] MEDS ORDERED: KETOROLAC TROMETHAMINE 30 MG/ML VIAL IV STA ×2 (21:41→23:40)
[2017-06-05] MEDS ORDERED: IBUP-1428 PO (23:46)
[2017-06-06] MEDS ORDERED: SODIUM CHLORIDE 0.9% 1000ML 1,000 ML IV STA (01:00)
[2017-06-06] MEDS ORDERED: METOCLOPRAMIDE HCL INJ 5 MG/ML 2 ML VIAL IV STA (01:00)
[2017-06-06] MEDS ORDERED: HYDROmorphone INJ 0.5 MG/0.5 ML SYR IV STA (01:00)
[2017-06-06] MEDS ORDERED: ONDANSETRON 8 MG/54 ML D5W IV ONE (02:45)
--- NOTE | 2017-06-06 04:34 | EMERGENCY ROOM VISIT NOTE ---
ED Visit Note First contact with patient: 02:28 Pt signed out to me by Dr. Garcia awaiting a repeat CT with oral contrast to r/o appendicitis. CT returned and discussed with pt at bedside. No nausea right now and pain controlled. CT abd/pelvis with oral contrast: ORal contrast noted throughout the stomach, small bowel loops, and colon to the level of the sigmoid colon. NO bowel obstruction or inflammation. Normal appendix. Status post cholecystectomy. Mild early excreting contrast in the kidneys. No hydronephrosis. Small mesenteric lymph nodes are nonspecific but likely reactive. Tiny 5 mm nodular density along the super aspect of the umbilicus. Please correlate with direct visualization. Radiologist: Zuleima Rhodes M.D. Pt tolerated ice chips here and was feeling well. Discussed f/u, sx to watch/ return for, she verbalized understanding and was agreeable with plan.
[2017-06-06] MEDS ORDERED: ONDA8TAB13 SL (04:55)
[2017-06-06 05:20] VITALS: BP 124/79; PULSE 91; O2SAT 99
--- NOTE | 2017-06-06 07:09 | DIAGNOSTIC IMAGING REPORT ---
PELVIC COMPLETE NON OB CLINICAL HISTORY: 21 years-old Female presenting with RLQ pain. TECHNIQUE: Real-time grayscale and color and spectral Doppler ultrasound imaging of the pelvis was performed using a transabdominal probe. COMPARISON: CT performed the previous day and subsequently performed on 06/06/2017. FINDINGS: Uterus: Normal. Anteverted. The uterus measures 7.8 x 3.1 x 4.8 cm. Endometrial stripe measures 3 mm in thickness. Endometrium normal-appearing. Cervix grossly normal. Right adnexa: Right ovary normal. Right ovary measures 3.2 x 1.9 x 3.4 cm. Normal color Doppler flow and arterial and venous waveforms within the ovarian parenchyma. Left adnexa: Left ovary normal. Left ovary measures 1.9 x 1.7 x 1.9 cm. Normal color Doppler flow and arterial and venous waveforms within the ovarian parenchyma. Other: No free fluid. IMPRESSION: No ovarian torsion. Electronically signed by: Ricki Hodgson M.D. 06/06/2017 7:07 AM Dictated Date/Time: 06/06/2017 7:05 AM
--- NOTE | 2017-06-06 07:33 | DIAGNOSTIC IMAGING REPORT ---
CT SCAN OF THE ABDOMEN AND PELVIS WITHOUT IV CONTRAST CLINICAL HISTORY: Right lower quadrant abdominal pain. COMPARISON STUDY: Abdominal CT dated 06/05/2017. TECHNIQUE: CT scan of the abdomen and pelvis is performed from the lung bases to the proximal femora. Images are reviewed in the axial, sagittal, and coronal planes. IV contrast was not administered for this examination as per the referring clinician due to recent contrast injection. Note that the examination was performed in suboptimal fashion without IV contrast. Oral contrast was utilized. A dose lowering technique was utilized adhering to the principles of ALARA. CT DOSE: 331.61 mGy.cm FINDINGS: Lung bases: The heart is normal in size and without pericardial effusion. The lung bases are clear. Liver: The unenhanced liver is normal in size, contour, and attenuation. There is no intrahepatic biliary ductal dilatation. Gallbladder: Surgically absent noting clips in the gallbladder fossa. Spleen: Normal in size and attenuation. Pancreas: Unremarkable. Adrenal glands: Unremarkable. Kidneys: The unenhanced kidneys are normal in size and without hydronephrosis. Excreted contrast within the renal collecting system degrades assessment for renal calculi. There is no evidence of contour deforming renal mass lesion. Abdominal vasculature: The abdominal aorta is normal in course and caliber. Bowel: The small bowel and colon are normal in course and caliber. The appendix is well-visualized and normal. Peritoneum: There is no intraperitoneal free air or abdominal ascites. Lymphadenopathy: None. Pelvic viscera: The bladder is filled with excreted contrast. The bladder, uterus, and adnexa are normal as imaged. Small ovarian follicles are incidentally noted. Skeletal structures: No lytic or blastic lesions are seen. IMPRESSION: There are no acute infectious or inflammatory findings in the abdomen or pelvis. The appendix is well-visualized and normal. Electronically signed by: Wood Briggs M.D. 06/06/2017 7:32 AM Dictated Date/Time: 06/06/2017 7:28 AM
[2017-06-07 14:57] LABS: CHLAMYDIA TRACH RNA*** NOT DETECTED (NOT DETECTED); GC (NEIS GONORRHOEAE)RNA** NOT DETECTED (NOT DETECTED)
[2017-06-07] MEDS ORDERED: TRAM-10 PO (15:26)
== END 2017-06-06 05:20 | disposition home or self-care (01) ==
LOC: C.EDB 17:55 → C.EDA 06-06 05:20
DX: R10.31 Right lower quadrant pain (principal); R11.0 Nausea; K59.00 Constipation, unspecified

== ENCOUNTER 2017-06-07 13:00 | Emergency (ER) | payer OTHER ==
[~2017-06-07] VITALS: Ht 157.5 cm; Wt 69.4 kg
[~2017-06-07 13:00] MED LIST changes: -BIOT1TAB5 PO; -CITA20TA9 PO; +IBUP-1428 PO; -MELO7.5T5 PO; +MULT-1027 PO; +ONDA4TAB46 PO; +ONDA8TAB13 SL; +PHEN37.585 PO; +THIA1TAB PO
[2017-06-07 13:08] VITALS: TEMP 37.2; Ht 157.5 cm; Wt 69.4 kg
[2017-06-07] MEDS ORDERED: ONDANSETRON INJ 2 MG/ML 2 ML VIAL IV PRN (13:45)
[2017-06-07] MEDS ORDERED: SODIUM CHLORIDE 0.9% 1000ML 1,000 ML IV ONE (13:45)
--- NOTE | 2017-06-07 13:47 | EMERGENCY ROOM VISIT NOTE ---
History First contact with patient: 13:12 Chief Complaint: ABDOMINAL PAIN Stated Complaint: R SIDE PAIN, NAUSEA Nursing Triage Summary: triage note: pt reports she was seen here fransisca night and told she has the beginnings of appendicits. pt reports increased right lower abd pain and nausea. History of Present Illness The patient is a 21 year old female who presents to the Emergency Room with complaints of lower quadrant pain. The patient was in the emergency room on 06/05/2017 any early hours of 2016 with similar complaints. She was evaluated for acute appendicitis. She had an initial CT scan of the abdomen that was suboptimal but did not have any suggestive findings of appendicitis and a repeat CT scan on the same visit but did not have any findings of acute appendicitis. In addition, an ultrasound was negative for ovarian torsion. She was discharged at that time with antiemetics and advised to return if the pain did not improve or got worse. The patient returns today stating that the pain has gotten worse. Prior to her visit 2 days ago she states her pain was a 6 out of 10 in the right lower quadrant without radiation to the back. Today she complains that the pain is 9 out of 10, but again does not radiate. She denies any dysuria or urinary frequency. She has had 3 episodes of diarrhea since she department from the ED yesterday, without melena or hematochezia. She says she is a low-grade temperature of 99, but is taken Tylenol as gotten improvement in her temperature. She states she has poor appetite, but denies persistent nausea and states Zofran has been helpful. She's been able to keep fluids down. She denies any chest pain, shortness of breath, palpitations, coughing, wheezing , lightheadedness, dizziness, orthopnea or lower extremity edema. Review of Systems See HPI for pertinent positives & negatives. A total of 10 systems reviewed and were otherwise negative. Past Medical/Surgical History Medical Problems: (1) Anxiety Disorder, Unspecified (2) Chest wall pain (3) Endometriosis (4) Occipital neuralgia (5) Ovarian cyst Surgical Problems: (1) History of laparoscopic cholecystectomy (2) S/P laparoscopic surgery Family History No pertinent family history Social History Smoking Status: Never Smoker Smokeless Tobacco Use: No Alcohol Use: occasionally Drug Use: none Marital Status: in relationship Housing Status: lives with family Occupation Status: student Current/Historical Medications Scheduled Medroxyprogesterone Acetate (C (Depo-Provera Contraceptiv), 1 DOSE INJ Q 12 WEEKS Multiple Vitamin (Multi Vitamin), 1 TAB PO DAILY Ondansetron Odt (Zofran Odt), 8 MG SL Q8 Phentermine Hcl (Adipex P), 37.5 MG PO DAILY Thiamine Mononitrate (Vitamin B-1), 400 MG PO DAILY Scheduled PRN Ibuprofen (Motrin), 800 MG PO Q8H PRN for Pain Ondansetron Hcl (Zofran), 4 MG PO UD PRN for Nausea Tramadol (Ultram), 50 MG PO Q4H PRN for Pain Allergies As noted above Physical Exam Vital Signs Date Time Temp Pulse Resp B/P (MAP) Pulse Ox O2 Delivery O2 Flow Rate FiO2 06/07/17 15:27 96 20 143/75 98 Room Air 06/07/17 14:40 91 18 135/80 100 Room Air 06/07/17 13:08 37.2 110 18 130/75 96 Room Air Pain Rating (0-10): 9 Physical Exam Constitutional: Vital signs as above were reviewed. Patient unable to stand and hop when requested to do so Eyes: Pupils equal, round, and reactive to light. Extraocular muscles are intact. No proptosis. No photophobia. ENT: Mucous membranes are moist. Oropharynx is clear. No sinus tenderness. Cardiovascular: Heart with a regular rate and rhythm. Pulses are palpable and symmetric in all 4 extremities. No pedal edema appreciated. Respiratory: Lungs clear to auscultation bilaterally. No wheezes, rales, or rhonchi appreciated. No accessory muscle use. No retractions. No increased work of breathing. GI: Abdomen soft, nontender, nondistended. Normal active bowel sounds. No abdominal hernias appreciated. No guarding or rigidity across the abdomen Left lower quadrant rebound tenderness, no guarding or rigidity Right lower quadrant tenderness with palpation as well as rebound, without guarding or rigidity : No CVA tenderness appreciated. Musculoskeletal: No midline cervical or vertebral tenderness. No gross deformities. No bony tenderness. No calf swelling or tenderness. Integumentary: Warm, dry, no rashes appreciated. Neurological: Patient awake, alert, and oriented x 3. Cranial nerves two through 12 grossly intact. Motor 5 out of 5 strength bilateral upper and lower extremities. Lymph: No cervical lymphadenopathy appreciated. Medical Decision & Procedures Laboratory Results 06/07/17 13:50 Red Blood Count 5.04, Mean Corpuscular Volume 89.3, Mean Corpuscular Hemoglobin 29.2, Mean Corpuscular Hemoglobin Concent 32.7, Mean Platelet Volume 10.6, Neutrophils (%) (Auto) 63.0, Lymphocytes (%) (Auto) 27.9, Monocytes (%) (Auto) 7.7, Eosinophils (%) (Auto) 0.8, Basophils (%) (Auto) 0.3, Neutrophils # (Auto) 4.89, Lymphocytes # (Auto) 2.16, Monocytes # (Auto) 0.60, Eosinophils # (Auto) 0.06, Basophils # (Auto) 0.02 06/07/17 13:50 Test 06/07/17 00:00 06/07/17 13:29 06/07/17 13:50 Urine Color YELLOW Urine Appearance CLEAR (CLEAR) Urine pH 5.5 (4.5-7.5) Urine Specific [place] 1.015 (1.000-1.030) Urine Protein NEG (NEG) Urine Glucose (UA) NEG (NEG) Urine Ketones NEG (NEG) Urine Occult Blood NEG (NEG) Urine Nitrite NEG (NEG) Urine Bilirubin NEG (NEG) Urine Urobilinogen NEG (NEG) Urine Leukocyte Esterase NEG (NEG) Urine Test NEG (NEG) White Blood Count 7.75 K/uL (4.8-10.8) Red Blood Count 5.04 M/uL (4.2-5.4) Hemoglobin 14.7 g/dL (12.0-16.0) Hematocrit 45.0 % (37-47) Mean Corpuscular Volume 89.3 fL (80-100) Mean Corpuscular Hemoglobin 29.2 pg (25-34) Mean Corpuscular Hemoglobin Concent 32.7 g/dl (32-36) Platelet Count 289 K/uL (130-400) Mean Platelet Volume 10.6 fL (7.4-10.4) Neutrophils (%) (Auto) 63.0 % Lymphocytes (%) (Auto) 27.9 % Monocytes (%) (Auto) 7.7 % Eosinophils (%) (Auto) 0.8 % Basophils (%) (Auto) 0.3 % Neutrophils # (Auto) 4.89 K/uL (1.4-6.5) Lymphocytes # (Auto) 2.16 K/uL (1.2-3.4) Monocytes # (Auto) 0.60 K/uL (0.11-0.59) Eosinophils # (Auto) 0.06 K/uL (0-0.5) Basophils # (Auto) 0.02 K/uL (0-0.2) RDW Standard Deviation 38.9 fL (36.4-46.3) RDW Coefficient of Variation 12.0 % (11.5-14.5) Immature Granulocyte % (Auto) 0.3 % Immature Granulocyte # (Auto) 0.02 K/uL (0.00-0.02) Anion Gap 6.0 mmol/L (3-11) Est Creatinine Clear Calc Drug Dose 88.3 ml/min Estimated GFR () 103.2 Estimated GFR (Non- 89.0 BUN/Creatinine Ratio 7.3 (10-20) Calcium Level 9.4 mg/dl (8.5-10.1) Total Bilirubin 0.5 mg/dl (0.2-1) Aspartate Amino Transf (AST/SGOT) 13 U/L (15-37) Alanine Aminotransferase (ALT/SGPT) 22 U/L (12-78) Alkaline Phosphatase 86 U/L (45-117) Total Protein 7.3 gm/dl (6.4-8.2) Albumin 4.0 gm/dl (3.4-5.0) Globulin 3.3 gm/dl (2.5-4.0) Albumin/Globulin Ratio 1.2 (0.9-2) Lipase 203 U/L (73-393) Medications Administered Medications (Trade) Dose Ordered Sig/Praveen Route Start Time Stop Time Status Last Admin Dose Admin Morphine Sulfate (MoRPHine SULFATE INJ) 2 mg Q1H PRN IV 06/07/17 13:45 06/07/17 16:31 DC 06/07/17 15:27 2 MG Ondansetron HCl (Zofran Inj) 4 mg Q4H PRN IV 06/07/17 13:45 06/07/17 16:31 DC 06/07/17 14:10 4 MG Sodium Chloride 1,000 ml @ 999 mls/hr Q1H1M ONCE IV 06/07/17 13:45 06/07/17 14:45 DC 06/07/17 14:09 999 MLS/HR ED Course 13:10 - seen and evaluated by Dr. Donato Mitchell, [address] 13:30 - Labs ordered; Zofran, Morphine and NSS ordered Discussed case with Dr. Pacheco Garcia, ER attending physician 14:40 - Lab reviewed and no abnormalities identified 14:45 - Discussed results with patient; patient agreeable to discharge home 15:30 - Discharge paperwork completed. Patient ready for discharge. Medical Decision The patient with ongoing right lower quadrant pain. 2 days ago she had a negative evaluation for appendicitis. However because the pain worsened, she came back to the emergency room for reevaluation. Again differentials wide and includes appendicitis, mesenteric adenitis, ovarian torsion, ectopic , ureteral stone, UTI, pyelonephritis. Within her exam, she did note tenderness in both the right and left lower quadrants, but never had any guarding or rigidity. In addition she appeared to be able to go from lying to sitting without difficulty. Given that she had an extensive workup 2 days ago, we felt an appropriate starting point would be to repeat lab work and dictate further workup based on labs. Fortunately there was no increase in her white cell count, and her BMP was grossly normal. A urine was clean. Per her Harris score, she does not meet criteria for further evaluation with imaging. In this setting, we did not feel that additional imaging was necessary. We discussed with her the findings on her labs, and in the setting of no changes compared to previous labs, and overall hemodynamic stability, this is likely a diagnosis of mesenteric adenitis. The patient was discharged home with instructions to maintain by mouth hydration , and use Zofran as needed for nausea. She was also instructed to downgrade her diet to a BRAT diet. Finally we gave her a short course of tramadol to help with the pain. The PDMP was reviewed without any issues identified. The patient was discharged home in stable condition, and was instructed to see her primary care provider within the next 3-5 days to ensure that her symptoms start to improve [place] Drug Monitoring Program Search Results: patient reviewed within database, no issues identified Head Trauma GCS Score: 15 Medication Reconcilliation Current Medication List: was personally reviewed by me Blood Pressure Screening Patient's blood pressure: Normal blood pressure Impression Primary Impression: Mesenteric adenitis Departure Information Dispostion Home / Self-Care Condition GOOD Prescriptions Tramadol (Ultram) 50 Mg Tab 50 MG PO Q4H Y for Pain for 5 Days, #20 TAB Prov: Donato Mitchell MD 06/07/17 Referrals No Doctor, Assigned (PCP) Patient Instructions My [facility] Additional Instructions You came to the emergency room for ongoing pain in the right lower abdomen. We repeated lab work and all the numbers looked normal. You have a condition called mesenteric adenitis, which is inflammation of the lymph nodes around the appendix. This can mimic appendicitis. Fortunately it is a benign condition and can be treated at home. When you go home please continue to take Zofran for nausea. We will give you a prescription for tramadol to help you with pain over the next few days. In addition, please eat a low residue diet, called BRAT diet for the next week to 10 days. The BRAT diet consists of foods like bananas, rice, applesauce, toast. Please also make sure that he drink plenty of fluids to stay hydrated and avoid dehydration. If your symptoms fail to improve, acutely worsen, please seek medical attention immediately by either calling your primary care provider or going to your nearest emergency department. Otherwise, please see your primary care provider within 1 week to ensure that your symptoms continue to improve. It was a pleasure to be involved in your care and we wish you all the best.
[2017-06-07 14:07] LABS: BASO % 0.3 %; BASO ABS # 0.02 K/uL (0-0.2); COMPLETE YES; EOS % 0.8 %; IG% 0.3 %; LYMPH % 27.9 %; LYMPH ABS # 2.16 K/uL (1.2-3.4); MEAN CELL VOLUME 89.3 fL (80-100); MEAN CORPUSCULAR HEMOGLOBIN 29.2 pg (25-34); MEAN CORPUSCULAR HGB CONC 32.7 g/dl (32-36); MEAN PLATELET VOLUME 10.6 fL (7.4-10.4); MONO % 7.7 %; PLATELET COUNT 289 K/uL (130-400); RED BLOOD COUNT 5.04 M/uL (4.2-5.4); WHITE BLOOD COUNT 7.75 K/uL (4.8-10.8)
[2017-06-07] MEDS: MoRPHine SULFATE 2 MG/ML CARP IV PRN ×2 (14:09→15:27)
[2017-06-07 14:24] LABS: MANUAL MICROSCOPIC REQUIRED? NO; URINE APPEARANCE CLEAR (CLEAR); URINE BILIRUBIN NEG (NEG); URINE COLOR YELLOW; URINE NITRITE NEG (NEG); URINE PH 5.5 (4.5-7.5); URINE SPECIFIC GRAVITY 1.015 (1.000-1.030); UROBILINOGEN NEG (NEG)
[2017-06-07 14:25] LABS: REVIEW REQ? NO
[2017-06-07 14:28] LABS: BUN/CREATININE RATIO 7.3 (10-20); CALCIUM 9.4 mg/dl (8.5-10.1); CREATININE 0.92 mg/dl (0.60-1.20); POTASSIUM 3.8 mmol/L (3.5-5.1)
[2017-06-07 14:31] LABS: ALB/GLOB RATIO 1.2 (0.9-2)
--- NOTE | 2017-06-07 15:06 | EMERGENCY ROOM VISIT NOTE ---
ED Visit Note First contact with patient: 13:12 The patient was seen and examined with Dr. Donato Mitchell. I agree with the history, physical and findings. Please see the note for disposition and details.
[2017-06-07] MEDS ORDERED: TRAM-10 PO (15:26)
[2017-06-07 15:27] VITALS: BP 143/75; PULSE 96; O2SAT 98
== END 2017-06-07 15:41 | disposition home or self-care (01) ==
LOC: C.EDB 13:01
DX: I88.0 Nonspecific mesenteric lymphadenitis (principal); F41.9 Anxiety disorder, unspecified

== ENCOUNTER 2023-07-19 15:43 | Observation (INO) ==
[~2023-07-19 15:43] MED LIST changes: -IBUP-1428 PO; +LACTATED RINGER'S 1,000 ML IV SCH; -MEDR150I INJ; -MULT-1027 PO; -ONDA4TAB46 PO; -ONDA8TAB13 SL; -PHEN37.585 PO; -THIA1TAB PO
[2023-07-19 16:30] LABS: Basophils # (auto) 0.05 K/uL (0.00-0.20); Basophils % (auto) 0.5 %; Eosinophils # (auto) 0.07 K/uL (0.00-0.50); Eosinophils % (auto) 0.8 %; Hematocrit (blood only) 41.6 % (37.0-47.0); Hemoglobin 13.9 g/dl (12.0-16.0); Immature Granulocytes # (auto) 0.03 K/uL (0.01-0.20); Immature Granulocytes % (auto) 0.3 %; Lymphocytes # (auto) 3.14 K/uL (1.20-3.40); Lymphocytes % (auto) 34.1 %; Mean Corpuscular Hemoglobin 30.3 pg (25.0-34.0); Mean Corpuscular Hgb Conc 33.4 g/dL (32.0-36.0); Mean Corpuscular Volume 90.8 fL (80.0-100.0); Mean Platelet Volume 10.5 fL (9.4-12.4); Monocytes # (auto) 0.54 K/uL (0.11-0.59); Monocytes % (auto) 5.9 %; Neutrophils # (auto) 5.39 K/uL (1.40-6.50); Neutrophils % (auto) 58.4 %; Platelet Count 251 K/uL (130-400); RDW Coefficient of Variation 11.5 % (11.5-14.5); RDW Standard Deviation 38.5 fL (36.4-46.3); Red Blood Count 4.58 M/uL (4.20-5.40); White Blood Count 9.22 K/ul (4.8-10.8)
[2023-07-19 16:47] LABS: Alanine Aminotransferase 11 U/L (7-52); Albumin Level 4.5 gm/dl (3.4-5.0); Alkaline Phosphatase 69 U/L (34-104); Anion Gap 7 (3-11); Aspartate Aminotransferase 14 U/L (13-39); BUN Creatinine Ratio 12.3 (10-20); Bilirubin,Total 0.3 mg/dl (0.2-1.0); Blood Urea Nitrogen 10 mg/dl (6-23); Calcium 9.2 mg/dl (8.6-10.3); Carbon Dioxide 23 mmol/L (21-32); Chloride 107 mmol/L (98-107); Est GFR (African American) 115.4 ml/min; Est GFR (Non-African American) 99.5 ml/min; Globulin 2.3 gm/dl (2.5-4.0); Glucose 112 mg/dl (70-99(Fasting)); Lipase 20 U/L (11-82); Potassium 3.9 mmol/L (3.5-5.1); Sodium 137 mmol/L (136-145); Total Protein 6.8 gm/dl (6.0-8.3)
[2023-07-19 16:48] LABS: Pregnancy Test, Serum Negative (Negative)
[2023-07-19] MEDS ORDERED: HYDROmorphone INJ 0.5 MG/0.5 ML SYR IV STA (17:17)
[2023-07-19] MEDS ORDERED: ONDANSETRON INJ 2 MG/ML 2 ML VIAL IV STA (17:17)
[2023-07-19] MEDS ORDERED: KETOROLAC TROMETHAMINE 15 MG/ML VIAL IV ONE (17:17)
--- NOTE | 2023-07-19 17:17 | Emergency Department Note ---
Impression & Plan Hemorrhagic cyst of left ovary, Abdominal pain, Ovarian cyst ED Provider Note NAME: DENISE GARSIA AGE: 27 SEX: F : 1995 ARRIVES VIA: Walk-In INFORMANT: Patient ED PROVIDER(S): Nguyễn Gautam DO CHIEF COMPLAINT: LLQ abd pain HPI: Patient is a 27-year-old female who presents ER for left lower quadrant abdominal pain which started on Monday. Today's associate with nausea and did worsen. [facility] and had an ultrasound done and confirmed a hemorrhagic ovarian cyst. She denies any headache or change in vision. No chest pain or shortness of breath. No dysuria, urgency, or frequency. No other exacerbating or remitting factors. She notes that bending over does improve the pain. She been taking Percocet but it has been helping. ADDITIONAL HISTORY OBTAINED: Per HPI Chronic Medical/Social Conditions Affecting Care: Per HPI PAST MEDICAL HISTORY:See Below PAST SURGICAL HISTORY:See Below FAMILY HISTORY:See Below SOCIAL HISTORY:See Below HOME MEDICATIONS:See Below ALLERGIES:See Below VITALS:See Below PHYSICAL EXAMINATION: GENERAL: Sitting hunched over in chair holding abdomen crying EYE EXAM: normal conjunctiva. OROPHARYNX: mucous membranes are moist NECK: supple, no nuchal rigidity, no adenopathy, non-tender LUNGS: Clear to auscultation. Normal chest wall mechanics HEART: no murmurs, S1 normal and S2 normal ABDOMEN: abdomen soft, TTP in LLQ, normo-active bowel sounds, no masses, no rebound or guarding. UPPER EXTREMITIES: upper extremities are grossly normal. LOWER EXTREMITIES: No pitting edema. NEURO EXAM: Normal sensorium, cranial nerves II-XII grossly intact, normal speech, no gross weakness of arms, no gross weakness of legs. MEDICAL DECISION MAKING: Patient is a 27-year-old female who presents the ER for left lower quadrant abdominal pain hunched over in tears holding her abdomen. IV was established blood work was obtained. External records were reviewed. Labs show no significant leukocytosis or anemia. BMP along with LFTs bilirubin and lipase is unremarkable. hCG was negative. UA was clean. Ultrasound the pelvis shows a 4 cm left ovarian cyst which was hemorrhagic. She was given 2 doses of IV narcotics as well as IV fluids. As she was still in tears having persistent pain consulted [facility] who evaluated at bedside who admit the patient for the OR. External Records Reviewed: None Consults/Care Managements Discussions: Per MDM Triage Nursing notes reviewed. Limited review of prior medical records performed Vital Signs: reviewed and remarkable for no significant abnormalities Differential diagnosis: Differential diagnoses includes but is not limited to gastritis, peptic ulcer disease, GERD, gallbladder disease, pancreatitis, small bowel obstruction, appendicitis, diverticulitis, hernia, urinary tract infection, torsion,, perforation, trauma, infectious. ER treatment provided: See below Diagnostics interpreted by me include EKG and cardiac monitoring as listed below: -Cardiac Monitoring: An order was placed for continuous cardiac monitoring. The monitor shows a rate of 82 with sinus rhythm. -ECG: none -Laboratory studies:Interpreted by me as stated above in MDM and shown below. Imaging studies: Xrays: As interpreted by me:none CTs show: none Ultrasound the pelvis shows a hemorrhagic left ovarian cyst without torsion Procedures:none Critical Care: [None] Past Med/Surg History Social History Smoking Status: Current every day smoker Tobacco Type: E-cigarettes / Vaping Feels Safe at Home: Yes Allergies Allergies Allergy/AdvReac Type Severity Reaction Status Date / Time prednisone Allergy Intermediate hives Verified 07/23/21 08:25 Sulfa (Sulfonamide Allergy Unknown RASH Verified 07/23/21 08:25 Antibiotics) morphine AdvReac Severe vomiting Unverified 07/23/21 08:25 Home Meds Home Medications Medication Instructions Recorded Confirmed acetaminophen 500 mg tablet 1,000 mg PO Q6H PRN Pain 07/23/21 07/19/23 (Tylenol Extra Strength) ondansetron HCl 4 mg tablet 4 mg PO Q8H PRN Nausea 07/23/21 07/19/23 hydroxyzine pamoate 25 mg capsule 25 mg PO TID PRN Other 07/19/23 07/19/23 ibuprofen 200 mg tablet 0 mg PO Q6H PRN Pain 07/19/23 07/19/23 lamotrigine 100 mg tablet 100 mg PO HS 07/19/23 07/19/23 lurasidone 40 mg tablet 40 mg PO QAM 07/19/23 07/19/23 sertraline 100 mg tablet 150 mg PO QAM 07/19/23 07/19/23 trazodone 100 mg tablet 100 mg PO HS 07/19/23 07/19/23 Results & Data (ED) Vital Signs Vital Signs - 24 hr 07/19/23 15:49 07/19/23 19:20 Temperature 36.5 C Temperature Source Temporal Artery Scan Pulse Rate 85 Pulse Rate [Apical] 80 Pulse Rhythm Regular Pulse Rhythm [Apical] Regular Respiratory Rate 20 24 Respiratory Effort / Characteristics Non-Labored Spontaneous Non-Labored Spontaneous Respiratory Depth Normal Normal Respiratory Pattern Regular Blood Pressure 123/77 Blood Pressure [Right Arm] 113/59 L Blood Pressure Mean 92 Blood Pressure Mean [Right Arm] 77 Blood Pressure Position [Right Arm] Lying Pulse Oximetry 97 98 Oxygen Delivery Method Room Air Room Air Sepsis Recent Fever Within 48 Hours No Sepsis New/Unexplained Change in Mental Status No Sepsis Action Taken by Nursing No Action Required Laboratory Data 07/19/23 16:16 07/19/23 16:16 Lab Results 07/19/23 07/19/23 Range/Units 16:16 17:17 WBC 9.22 (4.8-10.8) K/ul RBC 4.58 (4.20-5.40) M/uL Hgb 13.9 (12.0-16.0) g/dl Hct 41.6 (37.0-47.0) % MCV 90.8 (80.0-100.0) fL MCH 30.3 (25.0-34.0) pg MCHC 33.4 (32.0-36.0) g/dL RDW Std Deviation 38.5 (36.4-46.3) fL RDW Coeff of [place]an 11.5 (11.5-14.5) % Plt Count 251 (130-400) K/uL MPV 10.5 (9.4-12.4) fL Immature Gran % (Auto) 0.3 % Neut % (Auto) 58.4 % Lymph % (Auto) 34.1 % [place] % (Auto) 5.9 % Eos % (Auto) 0.8 % Baso % (Auto) 0.5 % Neut # (Auto) 5.39 (1.40-6.50) K/uL Lymph # (Auto) 3.14 (1.20-3.40) K/uL [place] # (Auto) 0.54 (0.11-0.59) K/uL Eos # (Auto) 0.07 (0.00-0.50) K/uL Baso # (Auto) 0.05 (0.00-0.20) K/uL Immature Gran # (Auto) 0.03 (0.01-0.20) K/uL Sodium 137 (136-145) mmol/L Potassium 3.9 (3.5-5.1) mmol/L Chloride 107 (98-107) mmol/L Carbon Dioxide 23 (21-32) mmol/L Anion Gap 7 (3-11) BUN 10 (6-23) mg/dl Creatinine 0.81 (0.6-1.2) mg/dl Est Cr Clr Drug Dosing Not Reportable Est GFR ( Amer) 115.4 ml/min Est GFR (Non-Af Amer) 99.5 ml/min BUN/Creatinine Ratio 12.3 (10-20) Glucose 112 H (70-99(Fasting)) mg/dl Calcium 9.2 (8.6-10.3) mg/dl Total Bilirubin 0.3 (0.2-1.0) mg/dl AST 14 (13-39) U/L ALT 11 (7-52) U/L Alkaline Phosphatase 69 (34-104) U/L Total Protein 6.8 (6.0-8.3) gm/dl Albumin 4.5 (3.4-5.0) gm/dl Globulin 2.3 L (2.5-4.0) gm/dl Albumin/Globulin Ratio 2.0 (0.9-2) Lipase 20 (11-82) U/L HCG, Qual Negative (Negative) Urine Color Yellow Urine Appearance Clear (Clear) Urine pH 5.5 (4.5-7.5) Ur Specific [place] 1.033 H (1.000-1.030) Urine Protein Negative (Negative) Urine Glucose (UA) Negative (Negative) Urine Ketones Trace H (Negative) Urine Blood Negative (Negative) Urine Nitrite Negative (Negative) Urine Bilirubin Negative (Negative) Urine Urobilinogen Negative (Negative) Ur Leukocyte Esterase Negative (Negative) Administered Medications Hydromorphone HCl (Hydromorphone Inj 1 Mg/Ml Syringe) 1 mg IV Q4 PRN PRN Reason: Pain Stop: 08/02/23 21:22 Last Admin: 07/19/23 21:36 Dose: 1 mg Documented By: HIMA Discontinued Medications Hydromorphone HCl (Hydromorphone Inj 0.5 Mg/0.5 Ml Syr) 0.5 mg IV NOW STA Stop: 07/19/23 17:18 Last Admin: 07/19/23 17:51 Dose: 0.5 mg Documented By: HIMA Hydromorphone HCl (Hydromorphone Inj 1 Mg/Ml Syringe) 1 mg IV NOW STA Stop: 07/19/23 18:52 Last Admin: 07/19/23 19:02 Dose: 1 mg Documented By: HIMA Lactated Ringer's (Lr) 1,000 mls @ 125 mls/hr IV .Q8H CLAUDETTE Stop: 07/19/23 13:59 Last Admin: 07/19/23 21:19 Dose: Not Given Documented By: HIMA Ketorolac Tromethamine (Ketorolac Tromethamine 15 Mg/Ml Vial) 15 mg IV NOW ONE Stop: 07/19/23 17:18 Last Admin: 07/19/23 17:51 Dose: 15 mg Documented By: HIMA Ondansetron HCl (Ondansetron Inj 2 Mg/Ml 2 Ml Vial) 4 mg IV NOW STA Stop: 07/19/23 17:18 Last Admin: 07/19/23 17:51 Dose: 4 mg Documented By: HIMA Imaging Data Radiologist's Impression: Pelvis Ultrasound 07/19/23 16:06 ULTRASOUND OF THE PELVIS CLINICAL HISTORY: Left pelvic pain. COMPARISON STUDY: Pelvic CT dated 06/06/2017. TECHNIQUE: Real-time, grayscale, and color flow sonography of the pelvis is performed both transabdominally and endovaginally. Images are reviewed in the transverse and longitudinal planes. The endovaginal examination was performed better assessment of the ovaries and adnexa. FINDINGS: Uterus: The uterus is normal in size and heterogeneous and echotexture, measuring 8.8 x 4.1 x 5.0 cm. Endometrium: The endometrium is heterogeneous, measuring up to 0.4 cm. An intrauterine device is in place. Ovaries: The ovaries are normal in size and morphology. The right ovary measures 2.9 x 1.9 x 2.0 cm and the left ovary measures 4.0 x 3.2 x 3.7 cm. A 3.2 cm complex/hemorrhagic follicle seen on the left. Additional small follicles are noted bilaterally. Normal Doppler waveforms are shown within both ovaries. Pelvis: There is a small volume of free fluid in the cul-de-sac. No concerning adnexal lesion is seen. IMPRESSION: 1. There is a 3.2 cm complex/hemorrhagic follicle noted in the left ovary. 2. There is no sonographic evidence of ovarian torsion at the time of examination. 3. Nonspecific free fluid is seen in the cul-de-sac. 4. An intrauterine device is in place. ACT 112: Negative or not required by law. Electronically signed by: Wood Briggs M.D. 07/19/2023 6:34 PM Transvaginal US 07/19/23 16:06 ULTRASOUND OF THE PELVIS CLINICAL HISTORY: Left pelvic pain. COMPARISON STUDY: Pelvic CT dated 06/06/2017. TECHNIQUE: Real-time, grayscale, and color flow sonography of the pelvis is performed both transabdominally and endovaginally. Images are reviewed in the transverse and longitudinal planes. The endovaginal examination was performed better assessment of the ovaries and adnexa. FINDINGS: Uterus: The uterus is normal in size and heterogeneous and echotexture, measuring 8.8 x 4.1 x 5.0 cm. Endometrium: The endometrium is heterogeneous, measuring up to 0.4 cm. An intrauterine device is in place. Ovaries: The ovaries are normal in size and morphology. The right ovary measures 2.9 x 1.9 x 2.0 cm and the left ovary measures 4.0 x 3.2 x 3.7 cm. A 3.2 cm complex/hemorrhagic follicle seen on the left. Additional small follicles are noted bilaterally. Normal Doppler waveforms are shown within both ovaries. Pelvis: There is a small volume of free fluid in the cul-de-sac. No concerning adnexal lesion is seen. IMPRESSION: 1. There is a 3.2 cm complex/hemorrhagic follicle noted in the left ovary. 2. There is no sonographic evidence of ovarian torsion at the time of examination. 3. Nonspecific free fluid is seen in the cul-de-sac. 4. An intrauterine device is in place. ACT 112: Negative or not required by law. Electronically signed by: Wood Briggs M.D. 07/19/2023 6:34 PM Discharge Plan Visit Data Chief Complaint: Abdominal Pain Stated Complaint: LT LOWER QUADRANTE PAIN, NAUSEA, VOMITING ED Provider: Nguyễn Gautam Discharge Problem: Hemorrhagic cyst of left ovary, Abdominal pain, Ovarian cyst Forms Stand Alone Forms: [employer] Prescriptions Prescriptions: No Action ondansetron HCl 4 mg tablet 4 mg PO Q8H PRN (Reason: Nausea) acetaminophen [Tylenol Extra Strength] 500 mg Tablet 1,000 mg PO Q6H PRN (Reason: Pain) sertraline 100 mg tablet 150 mg PO QAM trazodone 100 mg tablet 100 mg PO HS Patient Comments: per pt she takes 1 tab ibuprofen 200 mg Tablet 0 mg PO Q6H PRN (Reason: Pain) Rx Instructions: unknown dose lamotrigine 100 mg tablet 100 mg PO HS hydroxyzine pamoate 25 mg capsule 25 mg PO TID PRN (Reason: Other) lurasidone 40 mg tablet 40 mg PO QAM Referrals Referrals: Robin Wellington [Primary Care Provider] - Discharge Problem: Abdominal pain Qualifiers: Abdominal location: unspecified location Qualified Code(s): R10.9 - Unspecified abdominal pain Ovarian cyst Qualifiers: Laterality: left Qualified Code(s): N83.202 - Unspecified ovarian cyst, left side
[2023-07-19 17:34] LABS: Appearance Urine Clear (Clear); Bilirubin Urine Negative (Negative); Blood Urine Negative (Negative); Color Urine Yellow; Glucose Urine UA Negative (Negative); Ketones Urine Trace (Negative); Leukocyte Esterase Urine Negative (Negative); Nitrite Urine Negative (Negative); Protein Urine Negative (Negative); Specific Gravity Urine 1.033 (1.000-1.030); Urobilinogen Urine Negative (Negative); pH Urine 5.5 (4.5-7.5)
--- NOTE | 2023-07-19 18:37 | Ultrasound Report ---
ULTRASOUND OF THE PELVIS CLINICAL HISTORY: Left pelvic pain. COMPARISON STUDY: Pelvic CT dated 06/06/2017. TECHNIQUE: Real-time, grayscale, and color flow sonography of the pelvis is performed both transabdom inally and endovaginally. Images are reviewed in the transverse and longitudinal planes. The endovagi nal examination was performed better assessment of the ovaries and adnexa. FINDINGS: Uterus: The uterus is normal in size and heterogeneous and echotexture, measuring 8.8 x 4.1 x 5.0 cm. Endometrium: The endometrium is heterogeneous, measuring up to 0.4 cm. An intrauterine device is in p lace. Ovaries: The ovaries are normal in size and morphology. The right ovary measures 2.9 x 1.9 x 2.0 cm a nd the left ovary measures 4.0 x 3.2 x 3.7 cm. A 3.2 cm complex/hemorrhagic follicle seen on the left . Additional small follicles are noted bilaterally. Normal Doppler waveforms are shown within both ov katherine. Pelvis: There is a small volume of free fluid in the cul-de-sac. No concerning adnexal lesion is seen . IMPRESSION: 1. There is a 3.2 cm complex/hemorrhagic follicle noted in the left ovary. 2. There is no sonographic evidence of ovarian torsion at the time of examination. 3. Nonspecific free fluid is seen in the cul-de-sac. 4. An intrauterine device is in place. ACT 112: Negative or not required by law. Electronically signed by: Wood Briggs M.D. 07/19/2023 6:34 PM
[2023-07-19] MEDS ORDERED: HYDROmorphone INJ 1 MG/ML SYRINGE IV STA (18:51)
--- NOTE | 2023-07-19 20:22 | History & Physical Report ---
Date of Service July 19, 2023 Assessment & Plan (1) Ovarian cyst: Plan: Left pelvic pain Possible hemorrhagic cyst seen on ultrasound. Failed medical treatment. Patient wants surgical treatment. Discussed risks and alternatives with patient. Consent is obtained Patient will proceed with operative laparoscopy possible left salpingo- oophorectomy possible right salpingectomy possible laparotomy and cystoscopy. History of Present Illness Chief Complaint: left pelvic pain Primary Care Provider: Robin Wellington Patient patient is a 27-year-old who presented to the emergency room today with complaints of left-sided pelvic pain. Patient was seen at [facility] ER for the same thing and 3 she was placed on narcotics for pain. Patient reports pain has not improved at all. She showed up at [facility] because she is unhappy with the care she received there. Patient does not want to take any more narcotics and wants surgery Allergies Allergy/AdvReac Type Severity Reaction Status Date / Time prednisone Allergy Intermediate hives Verified 07/23/21 08:25 Sulfa (Sulfonamide Allergy Unknown RASH Verified 07/23/21 08:25 Antibiotics) morphine AdvReac Severe vomiting Unverified 07/23/21 08:25 Home Medications Medication Instructions Recorded Confirmed Type acetaminophen 500 mg tablet 1,000 mg PO Q6H PRN Pain 07/23/21 07/19/23 History (Tylenol Extra Strength) ondansetron HCl 4 mg tablet 4 mg PO Q8H PRN Nausea 07/23/21 07/19/23 History hydroxyzine pamoate 25 mg capsule 25 mg PO TID PRN Other 07/19/23 07/19/23 History ibuprofen 200 mg tablet 0 mg PO Q6H PRN Pain 07/19/23 07/19/23 History lamotrigine 100 mg tablet 100 mg PO HS 07/19/23 07/19/23 History lurasidone 40 mg tablet 40 mg PO QAM 07/19/23 07/19/23 History sertraline 100 mg tablet 150 mg PO QAM 07/19/23 07/19/23 History trazodone 100 mg tablet 100 mg PO HS 07/19/23 07/19/23 History Past Med/Surg History Social History Smoking Status: Current every day smoker Tobacco Type: E-cigarettes / Vaping Feels Safe at Home: Yes Results & Data Results & Data Vital Signs (Past 12 Hours) Vital Signs Temp Pulse Pulse Resp BP BP Pulse Ox 07/19/23 19:20 80 24 113/59 L 98 07/19/23 15:49 36.5 C 85 20 123/77 97 O2 Del Method 07/19/23 19:20 Room Air 07/19/23 15:49 Room Air (1) Ovarian cyst Laterality: left Qualified Code(s): N83.202 - Unspecified ovarian cyst, left side
[2023-07-19] MEDS: HYDROmorphone INJ 1 MG/ML SYRINGE IV PRN (21:36)
[2023-07-19] MEDS ORDERED: diphenhydrAMINE Capsule 25 MG CAP PO PRN (22:55)
[2023-07-20] MEDS: HYDROmorphone INJ 1 MG/ML SYRINGE IV PRN ×3 (01:22→11:49)
[2023-07-20] MEDS ORDERED: SODIUM CHLORIDE 0.9% 1,000 ML IV SCH (06:00)
--- NOTE | 2023-07-20 07:20 | Anesthesiology Consultation ---
Date of Service July 20, 2023 Assessment & Plan Chart Review Chart Review: Acceptable Risk for Surgery and Patient NOT seen in Pre Admission Testing Consults Requested none ASA [id number] Proposed Anesthesia Anesthesia Type: General History Surgery Operation Date: 07/20/23 07:30 Proposed Procedures p Laparoscopic Operative - Rubin Brewer MD Height/Weight Height: 5 ft 2 in Weight: 80.2 kg Allergies Allergy/AdvReac Type Severity Reaction Status Date / Time prednisone Allergy Intermediate hives Verified 07/23/21 08:25 Sulfa (Sulfonamide Allergy Unknown RASH Verified 07/23/21 08:25 Antibiotics) morphine AdvReac Severe vomiting Unverified 07/23/21 08:25 Medications Home Medications Medication Instructions Recorded Confirmed Last Taken acetaminophen 500 mg tablet 1,000 mg PO Q6H PRN Pain 07/23/21 07/19/23 07/22/21 (Tylenol Extra Strength) 1000 mg ondansetron HCl 4 mg tablet 4 mg PO Q8H PRN Nausea 07/23/21 07/19/23 07/22/21 hydroxyzine pamoate 25 mg capsule 25 mg PO TID PRN Other 07/19/23 07/19/23 Unknown ibuprofen 200 mg tablet 0 mg PO Q6H PRN Pain 07/19/23 07/19/23 Unknown lamotrigine 100 mg tablet 100 mg PO HS 07/19/23 07/19/23 Unknown lurasidone 40 mg tablet 40 mg PO QAM 07/19/23 07/19/23 Unknown sertraline 100 mg tablet 150 mg PO QAM 07/19/23 07/19/23 Unknown trazodone 100 mg tablet 100 mg PO HS 07/19/23 07/19/23 Unknown Active Medications Generic Name Dose Route Start Last Admin Trade Name Freq PRN Reason Stop Dose Admin Diphenhydramine HCl 25 mg 07/19/23 22:55 07/19/23 23:07 Diphenhydramine Capsule 25 Mg Cap PO 08/18/23 22:54 25 mg Q8 PRN Administration Itching Hydromorphone HCl 1 mg 07/19/23 21:23 07/20/23 05:18 Hydromorphone Inj 1 Mg/Ml Syringe IV 08/02/23 21:22 1 mg Q4 PRN Administration Pain NPO Last Intake of Solids Comment: prior to arrival to floor Past Medical History obese depression vapes;e-cigarettes Exercise / Class Metabolic Activity II 4-5 Yardwork/Stairs/Walk up hill Past Anesthesia History No Hx of Anesthesia Complications and No Family Hx of Anesthesia Complications History of PONV No Hx of PONV and No Hx of Motion Sickness Social History Smoking Status: Never smoker tobacco type: e-cigarettes Smoking cigarettes per day: vapes Do You Dip or Chew Tobacco: No Hx Alcohol Use: Yes Alcohol type: hard liquor alcohol intake frequency: holidays/special occasions only Hx Substance Use: No Physical Exam Vital Signs Last Vital Signs Temp 36.5 C 07/19/23 23:50 Pulse 95 H 07/19/23 23:50 Resp 18 07/19/23 23:50 BP 125/75 07/19/23 23:50 Pulse Ox 95 07/19/23 23:50 O2 Del Method Room Air 07/19/23 23:50 Testing Laboratory Results 07/19/23 16:16 07/19/23 16:16 Urine Color Yellow 07/19/23 17:17 Urine Appearance Clear (Clear) 07/19/23 17:17 Urine pH 5.5 (4.5-7.5) 07/19/23 17:17 Ur Specific [place] 1.033 (1.000-1.030) H 07/19/23 17:17 Urine Protein Negative (Negative) 07/19/23 17:17 Urine Glucose (UA) Negative (Negative) 07/19/23 17:17 Urine Ketones Trace (Negative) H 07/19/23 17:17 Urine Nitrite Negative (Negative) 07/19/23 17:17 Ur Leukocyte Esterase Negative (Negative) 07/19/23 17:17
[2023-07-20] MEDS ORDERED: BUPIVACAINE/EPINEPHRINE 0.5% MPF 1:200,000 30 ML VIAL ONE (07:35)
[2023-07-20] MEDS ORDERED: PROPOFOL IV EMULSION 10 MG/ML 20 ML VIAL IV ONE (07:38)
[2023-07-20] MEDS ORDERED: fentaNYL citrate PF 100 MCG/2 ML VIAL ONE ×2 (07:39→10:19)
[2023-07-20] MEDS ORDERED: MIDAZOLAM HCL 1 MG/ML 2ML VIAL ONE (07:39)
[2023-07-20] MEDS ORDERED: SUCCINYLCHOLINE 100MG/5ML SYR IV ONE (07:39)
[2023-07-20] MEDS ORDERED: CISATRACURIUM BESYLATE IV SOLN 2 MG/ML 10 ML VIAL IV ONE (07:40)
[2023-07-20] MEDS ORDERED: ONDANSETRON INJ 2 MG/ML 2 ML VIAL ONE (09:34)
[2023-07-20] MEDS ORDERED: NEOSTIGMINE METHYLSULFATE 1 MG/ML 10ML VIAL ONE (09:50)
[2023-07-20] MEDS ORDERED: GLYCOPYRROLATE 0.2 MG/ML VIAL ONE (09:50)
[2023-07-20] MEDS: fentaNYL citrate PF 100 MCG/2 ML VIAL IV PRN ×4 (10:21→10:36)
[2023-07-20] MEDS ORDERED: NALOXONE HCL 0.4 MG/1 ML VIAL/CARP IV PRN (10:24)
[2023-07-20] MEDS ORDERED: ATROPINE SULFATE 0.1 MG/ML 10ML SYR IV PRN (10:24)
[2023-07-20] MEDS ORDERED: PROMETHAZINE HCL 12.5 MG in SODIUM CHLORIDE 0.9% 50 ML IV PRN (10:24)
[2023-07-20] MEDS ORDERED: ePHEDrine sulfate 50 MG/ML AMP IV PRN (10:24)
[2023-07-20] MEDS ORDERED: FLUMAZENIL 0.1 MG/1 ML 10 ML VIAL IV PRN (10:24)
[2023-07-20] MEDS ORDERED: KETOROLAC 30 MG/ML VIAL IV PRN (10:24)
[2023-07-20] MEDS ORDERED: ONDANSETRON INJ 2 MG/ML 2 ML VIAL IV PRN ×2 (10:24→10:27)
[2023-07-20] MEDS ORDERED: oxyCODONE/ACETAMINOPHEN 5mg/325mg TAB PO PRN ×2 (10:27)
[2023-07-20] MEDS ORDERED: METOCLOPRAMIDE HCL INJ 5 MG/ML 2 ML VIAL IV PRN (10:27)
[2023-07-20] MEDS ORDERED: IBUPROFEN 600 MG TAB PO PRN (10:27)
[2023-07-20] MEDS ORDERED: KETOROLAC 30 MG/ML VIAL ONE (10:40)
--- NOTE | 2023-07-20 10:41 | Operative Report ---
Post Operative Report Pre & Post Diagnosis Operation Date: 07/20/23 07:30 Pre-Op Diagnosis: left ovarian hemorrhagic cyst, chronic pelvic pain Post-Op Diagnosis: left ovarian hemorrhagic cyst, chronic pelvic pain I identified the patient and participated in the time-out.: Yes Procedure Operation Date: 07/20/23 07:30 Actual Procedures p Laparoscopy, Laparoscopic left salpingo oopherectomy and right salpingoectomy(Left) - Rubin Brewer MD Surgeon Rubin Brewer MD Or Manager none Estimated Blood Loss 5 Findings Consistent with Post-Op Diagnosis Normal female escutcheon no lesions in the vagina or vulva. Patient is known to have an IUD and this was reported on ultrasound finding however on the pelvic exam no IUD string was identified laparoscopic findings showed 8 to 10-week size uterus the right adnexa appeared unremarkable. Right ovary and tube appeared normal. Left adnexa showed normal tube there was what appeared to be a ruptured clear fluid cyst on the left ovary.. Ovary otherwise appeared normal . As stated above patient had requested that her left adnexa and right fallopin tube be removed because of previous history of recurrent left-sided pelvic pain and permanent sterilization On the pelvic exam no IUD string was identified. Fluids IVF: 700ml Urine : 300ml EBL;5ml Specimens Left tube and ovary. Right fallopian tube Drains None Complications None Indications 1. chronic pelvic pain 2. Left ovarian cyst 3. Undisered fertility Description of Procedure DESCRIPTION OF PROCEDURE: The patient was prepped and draped in normal sterile fashion in the dorsal lithotomy position. Bonner catheter was placed without difficulty. Humi uterine manipulator is placed in the uterus to help manipulate the uterus during laparoscopy Attention was paid to the abdominal part of the procedure where a supraumbilical incision was made and carried down to the fascia. Remedios was used to grab the fascia. Veress needle was introduced into the abdomen at a 45-degree angle while tenting up the abdomen. Intra-abdominal placement was confirmed with a water-filled syringe. A water drop and suction test was performed. The abdomen was insufflated with CO2 gas. The Veress needle was removed and a 5 mm non bladed trocar was attached to a laparoscope was introduced into the abdomen under direct visualization. This was a non bladed trocar. Once inside the abdomen, laparoscope was repositioned. Inspection of the abdomen shows the findings as dictated above. Three more accessory ports were placed, two 5 mm accessory ports were placed in the lower abdomen on the contralateral side, in addition, an 11 mm trocar was placed on the left upper quadrant. General inspection of the abdomen and pelvis was performed as dictated above. There was good hemostasis. Left and right fallopian tubes, the ureters, uterosacrals, bowels, appendix were examined and identified. LigaSure was passed through the left accessory port. The adnexa which included the left ovary cyst and fallopian tube is transected using the LigaSure there is good hemostasis. On the right side the fallopian tube is transected transection of the fallopian tube on the right side is made as closed to the tube as possible not to have ovarian integrity on that side. An Endobag is placed through the 11 mm port and specimen was removed. . The 11-mm trocar site was closed with a Kasi-Carrasco under direct visualization. The skin incisions are closed with Dermabond, except for the 11-mm trocar site, which was closed with 4-0 Monocryl. The patient was returned to recovery in stable condition. Inspection of the vagina shows the vaginal cuff was intact. All instruments were removed from the vagina and the bladder and accounted for x2 I attest to the content of the Intraoperative Record and any orders documented therein. Any exceptions are noted below. Or Manager was necessary for retraction and manipulation of instruments in order to provide for a safe operation
--- NOTE | 2023-07-20 10:49 | Discharge Summary ---
Date of Service July 20, 2023 Admission HPI Per Admitting Provider Patient patient is a 27-year-old who presented to the emergency room today with complaints of left-sided pelvic pain. Patient was seen at [facility] ER for the same thing and 3 she was placed on narcotics for pain. Patient reports pain has not improved at all. She showed up at [facility] because she is unhappy with the care she received there. Patient does not want to take any more narcotics and wants surgery Discharge Data Consultations 07/19/23 19:15 Consult Gynecology Stat Procedures Performed Operation Date: 07/20/23 07:30 Actual Procedures p Laparoscopy, Laparoscopic left salpingo oopherectomy and right salping oectomy(Left) - Rubin Brewer MD Hospital Course (1) Ovarian cyst: Post op course was unremarkable and pt is discharges home in stable condition. D ischarge instructions including medications,diet, activity and follow up appointments are reviewed with pt. (2) Abdominal pain: (3) Hemorrhagic cyst of left ovary: Discharge Instructions Post op course was unremarkable and pt is discharges home in stable condition. Discharge instructions including medications,diet, activity and follow up appointments are reviewed with pt.
--- NOTE | 2023-07-20 10:54 | Anesthesiology Progress Note ---
Date of Service July 20, 2023 Anesthesia Post Procedure Vital Signs Vital Signs: Temp Pulse Pulse Pulse Resp BP BP 07/20/23 10:50 36.9 C 71 12 124/67 07/20/23 10:40 81 18 121/72 07/20/23 10:30 75 14 116/92 07/20/23 10:20 92 H 16 124/85 07/20/23 10:13 37.1 C 87 18 109/81 07/20/23 07:18 36.6 C 85 18 07/19/23 23:50 36.5 C 95 H 18 07/19/23 21:45 99 H 18 07/19/23 19:20 80 24 07/19/23 15:49 36.5 C 85 20 123/77 BP Pulse Ox O2 Del Method 07/20/23 10:50 96 Room Air 07/20/23 10:40 93 Room Air 07/20/23 10:30 93 Room Air 07/20/23 10:20 99 Room Air 07/20/23 10:13 93 Room Air 07/20/23 07:18 119/72 96 Room Air 07/19/23 23:50 125/75 95 Room Air 07/19/23 21:45 129/81 98 Room Air 07/19/23 19:20 113/59 L 98 Room Air 07/19/23 15:49 97 Room Air Pain Intensity Left Lower Abdomen: Pain Intensity: 4 Transfer of Care Handoff Completed per policy Notes Mental Status: alert / awake / arousable Patient Amnestic to Procedure: Yes Nausea / Vomiting: adequately controlled Pain: adequately controlled Airway Patency, RR, SpO2: stable & adequate BP & HR: stable & adequate Hydration State: stable & adequate Anesthetic Complications: no major complications apparent
== END 2023-07-20 14:45 | disposition home or self-care (01) ==
LOC: ED 15:43 → EDINP 20:56 → INTOOBSV 20:56 → 3N 22:55